=== PATIENT | female | born 1970 | race Caucasian/White ===

== ENCOUNTER 2022-07-26 07:14 | Day surgery (SDC) | payer OTHER ==
[2022-07-24 10:04] VITALS: BMI 27.9
[~2022-07-26 07:14] MED LIST: LACTATED RINGERS 1,000 ML IV SCH; LIDOCAINE 1% (10MG/ML) FOR IV START INTRADERMA PRN
[2022-07-26 07:31] VITALS: TEMP 97.5
[2022-07-26] MEDS ORDERED: LIDOCAINE 2% INJ 20 MG/ML (2 ML VIAL) ONE (08:08)
[2022-07-26] MEDS ORDERED: PROPOFOL 10 MG/ML 20 ML VIAL IV ONE (08:08)
--- NOTE | 2022-07-26 08:13 | P.HPIHPCON ---
History of Present Illness H&P Date: 07/26/22 51-year-old female presents today for upper endoscopy. She has had reflux and last for approximately 8 years and has been on and off reflux medication. She describes her symptoms as burning in the chest and into her throat. Consent for Procedure: I have explained the operation/procedure to the patient, including the risks, benefits, side effects, alternative therapies (including not receiving the proposed treatment or service), the likelihood of the patient achieving his/her goals, and potential recuperation problems for the procedure/sedation/analgesia, as well as any blood products, if indicated. I also explained to the patient the risks, benefits and side effects of the alternatives, as well as the risks related to not receiving the proposed procedure, care, treatment, or services. - Review of Systems All systems: negative Past Medical History Past Medical History: GERD/Reflux History of Any Multi-Drug Resistant Organisms: None Reported Past Surgical History: Bladder Surgery, Hysterectomy, Orthopedic Surgery, Uterine Ablation Additional Past Surgical History / Comment(s): BUNIONECTOMY LT FOOT. BLADDER SLING Past Anesthesia/Blood Transfusion Reactions: Postoperative Nausea & Vomiting (PONV) Smoking Status: Never smoker - Past Family History Mother Family Medical History: No Reported History Medications and Allergies Home Medications Medication Instructions Recorded Confirmed Type Dextroamphetamine/Amphetamine 20 mg PO DAILY 07/24/22 07/24/22 History [Adderall 20 mg Tablet] Estrogens, Conjugated [Premarin] 0.3 mg PO HS 07/24/22 07/24/22 History Pantoprazole [Protonix] 40 mg PO HS 07/24/22 07/24/22 History Allergies Allergy/AdvReac Type Severity Reaction Status Date / Time No Known Allergies Allergy Verified 07/26/22 07:27 Surgical - Exam Osteopathic Statement: *. No significant issues noted on an osteopathic structural exam other than those noted in the History and Physical/Consult. Vital Signs Temp Pulse Resp BP Pulse Ox 97.5 F L 62 16 141/64 100 07/26/22 07:30 07/26/22 07:30 07/26/22 07:30 07/26/22 07:30 07/26/22 07:30 - General well nourished, no distress - Eyes normal ocular movement - Neck trachea midline - Respiratory normal respiratory effort - Abdomen Abdomen: soft, non tender Assessment and Plan Plan: Plan is for upper endoscopy for further evaluation. Risks, benefits and alternatives were provided. Further recommendations after procedure was completed.
--- NOTE | 2022-07-26 08:28 | P.PCN ---
Date of Procedure: 07/26/22 Preoperative Diagnosis: GERD Postoperative Diagnosis: Gastritis Duodenitis Gastric polyp Hiatal hernia Procedure(s) Performed: EGD with biopsy Anesthesia: MAC Surgeon: Levi Allen Pathology: other (Biopsies of antrum, duodenum, gastric polyp, esophagus) Disposition: same day Indications for Procedure: 51-year-old female with GERD over the last 8 years. She has been on and off reflux medication. Plan is for upper endoscopy. Further recommendations to be provided after procedure is completed. Operative Findings: Gastritis Gastric polyp Hiatal hernia Description of Procedure: The patient was brought to the endoscopy suite. The patient was placed in left lateral decubitus position and adequate sedation was achieved using conscious sedation. A bite-block was placed and an endoscope was placed in the oropharynx and advanced under endoscopic visualization. The endoscope was advanced through the esophagus into the stomach, through the gastric antrum and in through the pylorus. The third portion of the duodenum was visualized. The endoscope was then slowly withdrawn. The first portion of duodenum was noted to have inflammatory changes. 5 mL were taken. The antrum was noted to have inflammatory changes. Biopsies were taken. The gastric body distended normally and the gastric folds appeared normal and flattened with insufflation. Small amount of polyps were noted. Polyp biopsy was performed. Hemostasis was maintained. A retroflexed view of the fundus and GE junction revealed a mild hiatal hernia. The esophagus appeared endoscopically normal. Biopsies were taken. Excess air was removed and the scope was withdrawn and the procedure was completed. The patient was then sent to PACU in stable condition.
[2022-07-26 08:50] VITALS: BP 121/75; PULSE 61; RESP 16
== END 2022-07-26 09:14 | disposition home or self-care (01) ==
LOC: ORWHC2ENDO 07:14
PROVIDERS: ATTEND Surgery
DX: K21.00 Gastro-esophageal reflux disease with esophagitis, without bleeding (principal); K29.50 Unspecified chronic gastritis without bleeding; K29.80 Duodenitis without bleeding; K31.7 Polyp of stomach and duodenum; K44.9 Diaphragmatic hernia without obstruction or gangrene; K21.9 Gastro-esophageal reflux disease without esophagitis; Z90.410 Acquired total absence of pancreas; Z98.890 Other specified postprocedural states; Z79.899 Other long term (current) drug therapy
CPT/HCPCS: 88305; 43239; J2704; J2001

== ENCOUNTER 2023-08-25 07:41 | Inpatient (IN) | payer BC, OTHER ==
[2023-08-25] MEDS ORDERED: SODIUM CHLORIDE 0.9% 1,000 ML IV STA (07:53)
[2023-08-25] MEDS ORDERED: ONDANSETRON 4 MG/2 ML VIAL IVP STA (07:53)
[2023-08-25] MEDS ORDERED: FAMOTIDINE 20 MG/2 ML VIAL IV STA (07:53)
[2023-08-25] MEDS ORDERED: DICYCLOMINE 10 MG/ML 2 ML AMP IM STA (07:53)
[2023-08-25 08:11] LABS: Basophils % (A) 0 %; Eosinophils # (A) 0.1 k/uL (0-0.7); Eosinophils % (A) 1 %; HCT 42.4 % (34.0-46.0); HGB 14.4 gm/dL (11.4-16.0); Lymphocytes # (A) 0.5 k/uL (1.0-4.8); Lymphocytes % (A) 3 %; MCH 32.1 pg (25.0-35.0); MCHC 33.9 g/dL (31.0-37.0); MCV 94.8 fL (80.0-100.0); Monocytes # (A) 0.5 k/uL (0-1.0); Monocytes % (A) 3 %; Neutrophils # (A) 15.3 k/uL (1.3-7.7); Neutrophils % (A) 93 %; Platelet Count 339 k/uL (150-450); RBC 4.48 m/uL (3.80-5.40); RDW 12.2 % (11.5-15.5); WBC 16.5 k/uL (3.8-10.6)
[2023-08-25 08:21] LABS: ALT 23 U/L (4-34); AST 33 U/L (14-36); African American GFR (CKD) >90 (>60 ml/min/1.73 sqM); Albumin 4.1 g/dL (3.5-5.0); Alkaline Phosphatase 72 U/L (38-126); Amylase 92 U/L (30-110); Anion Gap 10 mmol/L; Blood Urea Nitrogen 20 mg/dL (7-17); Calcium 9.5 mg/dL (8.4-10.2); Carbon Dioxide 27 mmol/L (22-30); Chloride 105 mmol/L (98-107); Glucose 125 mg/dL (74-99); Lipase 47 U/L (23-300); Non-African American GFR(CKD) >90 (>60 ml/min/1.73 sqM); Potassium 4.4 mmol/L (3.5-5.1); Sodium 142 mmol/L (137-145); Total Bilirubin 0.8 mg/dL (0.2-1.3); Total Protein 7.2 g/dL (6.3-8.2)
--- NOTE | 2023-08-25 09:19 | ED ---
General Adult HPI - General Chief complaint: Nausea/Vomiting/Diarrhea Stated complaint: N/V Time Seen by Provider: 08/25/23 07:46 Source: patient, EMS, RN notes reviewed Mode of arrival: EMS Limitations: no limitations - History of Present Illness Initial comments: Patient is a pleasant 52-year-old female presenting to the emergency department with concerns for nausea vomiting diarrhea. Onset of symptoms was around 2 AM. Patient has had 5 or 6 episodes each of vomiting and diarrhea. Patient has some nausea that improved with Zofran by EMS. Patient has occasional abdominal cramping that is intermittent. Patient has had several episodes of diarrhea. No fever. No history of chronic similar symptoms previously. - Related Data Home Medications Medication Instructions Recorded Confirmed Dextroamphetamine/Amphetamine 20 mg PO DAILY 07/24/22 07/24/22 [Adderall] Estrogens, Conjugated [Premarin] 0.3 mg PO HS 07/24/22 07/24/22 Pantoprazole [Protonix] 40 mg PO HS 07/24/22 07/24/22 Previous Rx's Medication Instructions Recorded Dicyclomine [Bentyl] 20 mg PO QID PRN #15 tablet 08/25/23 Ondansetron Odt [Zofran Odt] 4 mg PO Q8HR PRN #10 tab 08/25/23 Allergies Allergy/AdvReac Type Severity Reaction Status Date / Time No Known Allergies Allergy Verified 08/25/23 07:56 Review of Systems ROS Statement: Those systems with pertinent positive or pertinent negative responses have been documented in the HPI. ROS Other: All systems not noted in ROS Statement are negative. Constitutional: Denies: fever Eyes: Denies: eye pain ENT: Denies: ear pain Respiratory: Denies: cough, dyspnea Cardiovascular: Denies: chest pain Endocrine: Denies: fatigue Gastrointestinal: Reports: as per HPI, nausea, vomiting, diarrhea Genitourinary: Denies: dysuria Skin: Denies: rash Neurological: Denies: weakness Past Medical History Past Medical History: GERD/Reflux History of Any Multi-Drug Resistant Organisms: None Reported Past Surgical History: Bladder Surgery, Hysterectomy, Orthopedic Surgery, Uterine Ablation Additional Past Surgical History / Comment(s): BUNIONECTOMY LT FOOT. BLADDER SLING Past Anesthesia/Blood Transfusion Reactions: Postoperative Nausea & Vomiting (PONV) Past Psychological History: No Psychological Hx Reported Smoking Status: Never smoker Past Alcohol Use History: Occasional Past Drug Use History: None Reported - Past Family History Mother Family Medical History: No Reported History General Exam Limitations: no limitations General appearance: alert, in no apparent distress Head exam: Present: normocephalic Eye exam: Present: normal appearance Neck exam: Present: normal inspection Respiratory exam: Present: normal lung sounds bilaterally Cardiovascular Exam: Present: regular rate, normal rhythm GI/Abdominal exam: Present: soft. Absent: distended, tenderness, pulsatile mass Extremities exam: Present: normal inspection Neurological exam: Present: alert Psychiatric exam: Present: normal affect, normal mood Skin exam: Present: normal color Course Vital Signs 08/25/23 07:45 Temperature 98.1 F Pulse Rate 74 Respiratory 18 Rate Blood Pressure 121/77 O2 Sat by Pulse 99 Oximetry Medical Decision Making - Medical Decision Making Was pt. sent in by a medical professional or institution (, PA, HOE RUNNER, urgent care, hospital, or group home...) When possible be specific @ -No Did you speak to anyone other than the patient for history (EMS, parent, family, police, friend...)? What history was obtained from this source @ -No Did you review nursing and triage notes (agree or disagree)? Why? @ -I reviewed and agree with nursing and triage notes Were old charts reviewed (outside hosp., previous admission, EMS record, old EKG, old radiological studies, urgent care reports/EKG's, group home records)? Report findings @ -No old charts were reviewed Differential Diagnosis (chest pain, altered mental status, abdominal pain women, abdominal pain men, vaginal bleeding, weakness, fever, dyspnea, syncope, headache, dizziness, GI bleed, back pain, seizure, CVA, palpatations, mental health, musculoskeletal)? @ -Differential Abdominal Pain Women: Appendicitis, Cholecystitis, diverticulosis, ischemic bowel, pancreatitis, hepatitis, UTI, gastroenteritis, AAA, incarcerated hernia, bowel obstruction, constipation, inflammatory bowel, hepatitis, peptic ulcer disease, splenic infarction, perforated viscus, vulvitis, ovarian torsion, PID, kidney stone, placenta abruption, this is not meant to be an all-inclusive list EKG interpreted by me (3pts min.). @ -As above X-rays interpreted by me (1pt min.). @ -None done CT interpreted by me (1pt min.). @ -None done U/S interpreted by me (1pt. min.). @ -None done What testing was considered but not performed or refused? (CT, X-rays, U/S, labs)? Why? @ -Considered imaging however patient has no abdominal tenderness What meds were considered but not given or refused? Why? @ -None Did you discuss the management of the patient with other professionals (susan yarbrough i.e. , PA, HOE RUNNER, lab, RT, psych nurse, nursing home social worker, sales representative wire rope, teacher, sailing officer, field nurse case manager)? Give summary @ -No Was smoking cessation discussed for >3mins.? @ -No Was critical care preformed (if so, how long)? @ -No Were there social determinants of health that impacted care today? How? (Homelessness, low income, unemployed, alcoholism, drug addiction, transportatio n, low edu. Level, literacy, decrease access to med. care, shelter, rehab)? @ -No Was there de-escalation of care discussed even if they declined (Discuss DNR or withdrawal of care, Hospice)? DNR status @ -No What co-morbidities impacted this encounter? (DM, HTN, Smoking, COPD, CAD, Cancer, CVA, ARF, Chemo, Hep., AIDS, mental health diagnosis, sleep apnea, morbid obesity)? @ -None Was patient admitted / discharged? Hospital course, mention meds given and route, prescriptions, significant lab abnormalities, going to OR and other pertinent info. @ -Patient reevaluated and feeling much better. Patient tolerating ice chips and syd idania. Patient and family are updated on results and plan. Patient will be provided prescriptions and recommended follow-up. Undiagnosed new problem with uncertain prognosis? @ -No Drug Therapy requiring intensive monitoring for toxicity (Heparin, Nitro, Insulin, Cardizem)? @ -No Were any procedures done? @ -No Diagnosis/symptom? @ -Vomiting, diarrhea Acute, or Chronic, or Acute on Chronic? @ -Acute Uncomplicated (without systemic symptoms) or Complicated (systemic symptoms)? @ -default Side effects of treatment? @ -No Exacerbation, Progression, or Severe Exacerbation? @ -No Poses a threat to life or bodily function? How? (Chest pain, USA, GA, pneumonia, PE, COPD, DKA, ARF, appy, cholecystitis, CVA, Diverticulitis, Homicidal, Suicidal, threat to staff... and all critical care pts) @ -No - Lab Data Result diagrams: 08/25/23 08:03 08/25/23 08:03 Lab Results 08/25/23 08/25/23 Range/Units 08:03 08:03 WBC 16.5 H (3.8-10.6) k/uL RBC 4.48 (3.80-5.40) m/uL Hgb 14.4 (11.4-16.0) gm/dL Hct 42.4 (34.0-46.0) % MCV 94.8 (80.0-100.0) fL MCH 32.1 (25.0-35.0) pg MCHC 33.9 (31.0-37.0) g/dL RDW 12.2 (11.5-15.5) % Plt Count 339 (150-450) k/uL MPV 7.0 Neutrophils % 93 % Lymphocytes % 3 % Monocytes % 3 % Eosinophils % 1 % Basophils % 0 % Neutrophils # 15.3 H (1.3-7.7) k/uL Lymphocytes # 0.5 L (1.0-4.8) k/uL Monocytes # 0.5 (0-1.0) k/uL Eosinophils # 0.1 (0-0.7) k/uL Basophils # 0.0 (0-0.2) k/uL Sodium 142 (137-145) mmol/L Potassium 4.4 (3.5-5.1) mmol/L Chloride 105 (98-107) mmol/L Carbon Dioxide 27 (22-30) mmol/L Anion Gap 10 mmol/L BUN 20 H (7-17) mg/dL Creatinine 0.64 (0.52-1.04) mg/dL Est GFR (CKD-EPI)AfAm >90 (>60 ml/min/1.73 sqM) Est GFR (CKD-EPI)NonAf >90 (>60 ml/min/1.73 sqM) Glucose 125 H (74-99) mg/dL Calcium 9.5 (8.4-10.2) mg/dL Total Bilirubin 0.8 (0.2-1.3) mg/dL AST 33 (14-36) U/L ALT 23 (4-34) U/L Alkaline Phosphatase 72 (38-126) U/L Total Protein 7.2 (6.3-8.2) g/dL Albumin 4.1 (3.5-5.0) g/dL Amylase 92 (30-110) U/L Lipase 47 (23-300) U/L Disposition Clinical Impression: Vomiting, Diarrhea Disposition: HOME SELF-CARE Condition: Stable Instructions (If sedation given, give patient instructions): Acute Nausea and Vomiting (ED), Acute Diarrhea (ED) Additional Instructions: Prescriptions and sent to pharmacy. Please do follow-up to primary care physician in the next one or 2 days for recheck. Return for uncontrolled vomiting, diarrhea, pain on a fevers, worsening or changing symptoms or any other concerns. Prescriptions: Dicyclomine [Bentyl] 20 mg PO QID PRN #15 tablet PRN Reason: Pain Ondansetron Odt [Zofran Odt] 4 mg PO Q8HR PRN #10 tab PRN Reason: Nausea Is patient prescribed a controlled substance at d/c from ED?: No Referrals: Bartolome Alejo DO [Primary Care Provider] - 1-2 days Time of Disposition: 09:18
[2023-08-25] MEDS ORDERED: ONDANSETRON 4 MG/2 ML VIAL IVP PRN (11:09)
[2023-08-25] MEDS ORDERED: NALOXONE 0.4 MG/ML 1 ML VIAL IV PRN (11:09)
--- NOTE | 2023-08-25 11:09 | ED ---
Medical Decision Making - Medical Decision Making Patient did have a bloody bowel movement following attempted discharge. Patient did have a second one just prior to reevaluation. Patient is resting comfortably in bed. Rectal exam without any swelling or obvious hemorrhoids. Patient did have reported protrusion earlier. No protrusion or evidence of prolapse at this time. Exam with minimal blood. Secondary to patient having recurrent bleeding she will be admitted. Admitting physician paged. Admission orders written. GI will be placed on consult. Case was discussed with Dr. Mccoy, who will admit for Dr. Alejo. - Lab Data Result diagrams: 08/25/23 08:03 08/25/23 08:03 Lab Results 08/25/23 08/25/23 Range/Units 08:03 08:03 WBC 16.5 H (3.8-10.6) k/uL RBC 4.48 (3.80-5.40) m/uL Hgb 14.4 (11.4-16.0) gm/dL Hct 42.4 (34.0-46.0) % MCV 94.8 (80.0-100.0) fL MCH 32.1 (25.0-35.0) pg MCHC 33.9 (31.0-37.0) g/dL RDW 12.2 (11.5-15.5) % Plt Count 339 (150-450) k/uL MPV 7.0 Neutrophils % 93 % Lymphocytes % 3 % Monocytes % 3 % Eosinophils % 1 % Basophils % 0 % Neutrophils # 15.3 H (1.3-7.7) k/uL Lymphocytes # 0.5 L (1.0-4.8) k/uL Monocytes # 0.5 (0-1.0) k/uL Eosinophils # 0.1 (0-0.7) k/uL Basophils # 0.0 (0-0.2) k/uL Sodium 142 (137-145) mmol/L Potassium 4.4 (3.5-5.1) mmol/L Chloride 105 (98-107) mmol/L Carbon Dioxide 27 (22-30) mmol/L Anion Gap 10 mmol/L BUN 20 H (7-17) mg/dL Creatinine 0.64 (0.52-1.04) mg/dL Est GFR (CKD-EPI)AfAm >90 (>60 ml/min/1.73 sqM) Est GFR (CKD-EPI)NonAf >90 (>60 ml/min/1.73 sqM) Glucose 125 H (74-99) mg/dL Calcium 9.5 (8.4-10.2) mg/dL Total Bilirubin 0.8 (0.2-1.3) mg/dL AST 33 (14-36) U/L ALT 23 (4-34) U/L Alkaline Phosphatase 72 (38-126) U/L Total Protein 7.2 (6.3-8.2) g/dL Albumin 4.1 (3.5-5.0) g/dL Amylase 92 (30-110) U/L Lipase 47 (23-300) U/L Disposition Clinical Impression: Vomiting, Diarrhea Disposition: ADMITTED IP TO THIS HOSP Condition: Stable Is patient prescribed a controlled substance at d/c from ED?: No Time of Disposition: 11:09
[2023-08-25] MEDS: SODIUM CHLORIDE 0.9% 1,000 ML IV SCH (11:12)
[2023-08-25] MEDS ORDERED: BARIUM SULFATE 2% - 450 ML ORAL.SUSP BOTTLE PO PRN (14:29)
[2023-08-25] MEDS: HYDROmorphone 0.5 MG/0.5 ML SYRINGE IVP PRN (14:42)
[2023-08-25] MEDS ORDERED: IOPAMIDOL CONTRAST (ORAL USE) VIAL PO PRN (15:04)
[2023-08-25 15:43] LABS: Basophils % (A) 0 %; Eosinophils % (A) 0 %; HGB 13.7 gm/dL (11.4-16.0); Lymphocytes # (A) 0.4 k/uL (1.0-4.8); Lymphocytes % (A) 4 %; MCHC 33.4 g/dL (31.0-37.0); MCV 95.5 fL (80.0-100.0); Mean Platelet Volume 7.3; Monocytes # (A) 0.3 k/uL (0-1.0); Monocytes % (A) 2 %; Neutrophils # (A) 11.6 k/uL (1.3-7.7); Neutrophils % (A) 94 %; Platelet Count 305 k/uL (150-450); RBC 4.29 m/uL (3.80-5.40); WBC 12.3 k/uL (3.8-10.6)
--- NOTE | 2023-08-25 16:54 | P.CONS ---
History of Present Illness - Reason for Consult Consult date: 08/25/23 Lower GI bleed Requesting physician: Al Gilliam - Chief Complaint Abdominal pain, nausea and vomiting - History of Present Illness This a 52-year-old female who presented to the emergency department this morning after having several episodes of emesis. Patient had nausea and vomiting throughout the day and diarrhea. She denied any coffee-ground emesis or hematemesis. States diarrhea was normal until she was getting ready to be discharged from the emergency department and she started having bright red blood per rectum. She also is complaining of lower abdominal pain and cramping associated with her diarrhea. States that she was getting diaphoretic and feeling weak. She states that she does have problems with constipation in the past, she noticed that she was having a protrusion from her rectum throughout the day yesterday and today. She states that every time she stands up her rectum is protruding and when she gets up to have a bowel movement it is all blood. She is able to push back the rectum, however every time she stands up it protrudes and is painful. She denies any previous GI bleed. States that she had a colonoscopy she believes in 2014 for some GI issues at that time however states that her colonoscopy was normal. She denies being on any anticoagulation. WBC 16.5 hemoglobin 14.4 hematocrit 42 platelet count 339,000 sodium 142 potas sium 4.4 albumin 20 creatinine 0.6 total bilirubin 0.8 AST 33 ALT 23 alkaline phosphatase 72 amylase 92 lipase 47 Review of Systems REVIEW OF SYSTEMS: CARDIOPULMONARY: No chest pain or shortness of breath. Gastrointestinal: Lower abdominal cramping and pain. Nausea and vomiting. No hematemesis, coffee-ground emesis. Rectal bleeding with prolapsed rectum. GENITOURINARY: No dysuria or hematuria. MUSCULOSKELETAL: Reports normal range of motion. SKIN: No rashes. No jaundice. ENDOCRINE: No excessive weight gain or loss. No polydipsia or polyuria. PSYCHIATRIC: Unremarkable. NEUROLOGY: No change in mental status. Denies dizziness, headache. ENT: Vision unremarkable. CONSTITUTIONAL: No recent weight loss. Patient with chills, diaphoretic through the night with the nausea and vomiting. Weakness. Past Medical History Past Medical History: GERD/Reflux History of Any Multi-Drug Resistant Organisms: None Reported Past Surgical History: Bladder Surgery, Hysterectomy, Orthopedic Surgery, Uterine Ablation Additional Past Surgical History / Comment(s): BUNIONECTOMY LT FOOT. BLADDER SLING Past Anesthesia/Blood Transfusion Reactions: Postoperative Nausea & Vomiting (PONV) Past Psychological History: No Psychological Hx Reported Smoking Status: Never smoker Past Alcohol Use History: Occasional Past Drug Use History: None Reported - Past Family History Mother Family Medical History: No Reported History Medications and Allergies Home Medications Medication Instructions Recorded Confirmed Type Dextroamphetamine/Amphetamine 20 mg PO DAILY 07/24/22 08/25/23 History [Adderall] Estrogens, Conjugated [Premarin] 0.3 mg PO HS 07/24/22 08/25/23 History Pantoprazole [Protonix] 40 mg PO HS 07/24/22 08/25/23 History Ascorbic Acid [Vitamin C] 1,000 mg PO DAILY PRN 08/25/23 08/25/23 History Aspirin/Acetaminophen/Caffeine 2 tab PO Q6H PRN 08/25/23 08/25/23 History [Excedrin Migraine Caplet] Dicyclomine [Bentyl] 20 mg PO QID PRN #15 tablet 08/25/23 Rx LORazepam [Ativan] 1 mg PO DAILY PRN 08/25/23 08/25/23 History Ondansetron Odt [Zofran Odt] 4 mg PO Q8HR PRN #10 tab 08/25/23 Rx Allergies Allergy/AdvReac Type Severity Reaction Status Date / Time No Known Allergies Allergy Verified 08/25/23 11:41 Physical Exam Vitals: Vital Signs Temp Pulse Pulse Resp BP BP Pulse Ox 08/25/23 14:04 98.5 F 56 L 16 111/70 99 08/25/23 11:34 98.2 F 74 16 112/71 98 08/25/23 09:52 98.2 F 83 18 114/76 99 08/25/23 07:45 98.1 F 74 18 121/77 99 Intake and Output 08/25/23 08/25/23 08/25/23 06:59 14:59 22:59 Other: Weight 66.224 kg General appearance: The patient is alert, oriented, appears in no acute distress. HET: Head is normocephalic and atraumatic. Conjunctiva pink. Sclera anicteric. Neck: Supple without lymphadenopathy. Trachea midline. Heart: Regular. Lungs: Equal expansion, normal respiratory effort. Abdomen: Soft, lower abdominal tenderness with palpation, nondistended. No guarding or rigidity. Rectum: No notable hemorrhoids, rectum prolapsed at this time. Skin: No rashes. No jaundice. Extremities: Normal skin color and turgor. No pedal edema. Neurological: No focal deficits. Alert and oriented x3. Results CBC & Chem 7: 08/25/23 15:04 08/25/23 08:03 Labs: Abnormal Lab Results - Last 24 Hours (Table) 08/25/23 08/25/23 08/25/23 Range/Units 08:03 08:03 11:13 WBC 16.5 H (3.8-10.6) k/uL Neutrophils # 15.3 H (1.3-7.7) k/uL Lymphocytes # 0.5 L (1.0-4.8) k/uL BUN 20 H (7-17) mg/dL Glucose 125 H (74-99) mg/dL Stool Occult Blood Positive H (Negative) Assessment and Plan (1) Lower GI bleed Narrative/Plan: 52-year-old female with nausea vomiting and diarrhea came into the emergency department with concerns of weakness and fatigue. Patient then started having bright red blood per rectum in the emergency department right prior to plans for discharge. Patient was recently diagnosed with covert infection about 2 weeks ago. She does suffer from some constipation at times. Denies previous history of lower GI bleed. Denies any anticoagulation. Does have associated abdominal pain and cramping. Need to consider possible infectious colitis as patient has elevated WBC. Will order a CT abdomen and pelvis. Continue clear liquid diet. Further recommendations forthcoming based on clinical course. Current Visit: Yes Status: Acute Code(s): K92.2 - GASTROINTESTINAL HEMORRHAGE, UNSPECIFIED SNOMED Code(s): 23935286 (2) Abdominal pain Current Visit: Yes Status: Acute Code(s): R10.9 - UNSPECIFIED ABDOMINAL PAIN SNOMED Code(s): 67942838 (3) Nausea and vomiting Current Visit: Yes Status: Acute Code(s): R11.2 - NAUSEA WITH VOMITING, UNSPECIFIED SNOMED Code(s): 11109342 (4) Rectal prolapse Narrative/Plan: Recurrent rectal prolapse, general surgery consulted. Patient requesting Dr. Damon if possible. Current Visit: Yes Status: Acute Code(s): K62.3 - RECTAL PROLAPSE SNOMED Code(s): 85460463 (5) Diarrhea Current Visit: Yes Status: Acute Code(s): R19.7 - DIARRHEA, UNSPECIFIED SNOMED Code(s): 17745771 Plan: 1. Continue symptomatic and supportive care 2. CT abdomen and pelvis with contrast ordered 3. Check CBC every 6 hours 4. Patient may have clear liquid diet 5. Consult to Gen. surgery for recurrent rectal prolapse with rectal bleeding Thank you for this consultation, we will continue to follow. Dr. Valentina Dunn I agree with the dictator's note, documented as a scribe by Argenis Herr.
[2023-08-25] MEDS: METOCLOPRAMIDE 5 MG/ML 2 ML VIAL IVP PRN (17:18)
--- NOTE | 2023-08-25 17:34 | CT ---
EXAMINATION TYPE: CT abdomen pelvis w con CT DLP: 534.9 mGycm, Automated exposure control for dose reduction was used. DATE OF EXAM: 08/25/2023 5:15 PM COMPARISON: None CLINICAL INDICATION:Female, 52 years old with history of abdominal pain, rectal bleeding; Abdominal p ain, rectal bleeding, nausea and vomiting since this morning. TECHNIQUE: Axial CT of the ;CT abdomen pelvis w con;Sagittal and coronal reformats were created on a separate workstation. Contrast used:100 cc mL of Isovue 300 with IV Contrast, (none if empty) Oral contrast used: with Oral Contrast (none if empty) FINDINGS: LOWER CHEST: Unremarkable ABDOMEN LIVER: Unremarkable GALLBLADDER AND BILE DUCTS: Unremarkable. PANCREAS: Unremarkable. SPLEEN: Unremarkable. ADRENAL GLANDS: Unremarkable. KIDNEYS AND URETERS: No evidence of hydronephrosis or renal calculus. The ureters are unremarkable. PELVIS BLADDER: Unremarkable REPRODUCTIVE: Unremarkable. ABDOMEN & PELVIS STOMACH AND BOWEL: No evidence of bowel obstruction. The appendix is normal. Circumferential wall thi ckening of the descending colon extending from the splenic flexure to the sigmoid colon.. Wall thicke harpreet up to 11 mm with hyperemia. No organizing fluid collection. PERITONEUM/RETROPERITONEUM: No evidence of pneumoperitoneum or free fluid. VASCULATURE: No evidence of aortic aneurysm. MUSCULOSKELETAL: No acute osseous abnormalities LYMPH NODES: No gross evidence for lymphadenopathy. SOFT TISSUE/ABDOMINAL WALL: Fat-containing umbilical hernia. IMPRESSION: Colitis of the descending colon, no evidence for obstruction or perforation or organizing fluid colle ction.
[2023-08-25] MEDS: HYDROcodone/APAP 5-325MG 1 EACH TAB PO PRN (18:19)
[2023-08-25] MEDS: PANTOPRAZOLE 40 MG/10 ML VIAL IV SCH (20:20)
[2023-08-25 20:29] LABS: Basophils % (A) 0 %; Eosinophils % (A) 0 %; HCT 37.7 % (34.0-46.0); HGB 12.5 gm/dL (11.4-16.0); Lymphocytes # (A) 0.5 k/uL (1.0-4.8); Lymphocytes % (A) 5 %; MCH 31.5 pg (25.0-35.0); MCHC 33.3 g/dL (31.0-37.0); MCV 94.8 fL (80.0-100.0); Mean Platelet Volume 7.5; Monocytes # (A) 0.4 k/uL (0-1.0); Monocytes % (A) 4 %; Neutrophils # (A) 10.2 k/uL (1.3-7.7); Neutrophils % (A) 91 %; Platelet Count 314 k/uL (150-450); RBC 3.97 m/uL (3.80-5.40); WBC 11.2 k/uL (3.8-10.6)
--- NOTE | 2023-08-25 23:05 | HP ---
HISTORY AND PHYSICAL CHIEF COMPLAINTS: Nausea, vomiting, diarrhea, and GI bleed. HISTORY OF PRESENT ILLNESS: This is a 52-year-old woman with past medical history of GERD, was complaining of acute diarrhea since 2 a.m. The patient had 5 to 6 times diarrhea as well as some vomiting. The patient apparently ate some frosting during the holidays. The patient subsequently noted some blood in the stool also and prolapsed rectum and the patient was admitted for further evaluation and treatment. The patient had constipation previously and might have some prolapse previously according to her. There is no history of any fever, rigors, or chills. PAST MEDICAL HISTORY: Reviewed, GERD, bladder surgeries, rest of the history and rest of the chart is also reviewed. HOME MEDICATIONS: Reviewed include Ativan, dose and rest of medications noted. ALLERGIES: None. FAMILY HISTORY: No history of heart disease or strokes in the family. SOCIAL HISTORY: No history of smoking or alcohol. REVIEW OF SYSTEMS: A 14-point review is negative except as mentioned. PHYSICAL EXAMINATION: VITAL SIGNS: Pulse 56, blood pressure 111/76, respirations 16. HEENT: Conjunctivae normal. NECK: No jugular venous distention. CARDIOVASCULAR: S1, S2 muffled. RESPIRATIONS: Breath sounds diminished at the bases. ABDOMEN: Soft. Mild diffuse discomfort. No guarding, no rigidity, no masses palpable. LEGS: No edema, no swelling. NERVOUS SYSTEM: No focal deficit. SKIN: No ulcer, rash, bleeding. JOINTS: No active deforming arthropathy. LABORATORY DATA: Reviewed. ASSESSMENT: 1. Acute diarrheal disease. 2. Dehydration. 3. Possible rectal prolapse. 4. Lower GI bleed, possibly secondary to rectal prolapse. 5. Increased WBC. 6. Gastroesophageal reflux disease. 7. History of DJD. RECOMMENDATIONS: This 52-year-old woman presented with multiple complex medical issues, we will monitor the patient closely. Continue the current management, continue symptomatic treatment, otherwise at this time I will keep the patient n.p.o. except medications and IV fluids, surgical consultation. Other than that, continue to monitor. Further recommendations to follow. If the diarrhea is persisting, I would recommend stool cultures and further evaluation also. See orders for further details. MMODL / IJN: [id number] /
[2023-08-26] MEDS: HYDROcodone/APAP 5-325MG 1 EACH TAB PO PRN ×3 (01:00→15:52)
[2023-08-26] MEDS: ONDANSETRON 4 MG/2 ML VIAL IVP PRN ×4 (01:00→22:52)
[2023-08-26] MEDS: SODIUM CHLORIDE 0.9% 1,000 ML IV SCH ×2 (01:08→15:53)
[2023-08-26 08:44] LABS: Blood Urea Nitrogen 9.9 mg/dL (9.0-27.0); Calcium 8.5 mg/dL (8.7-10.3); Carbon Dioxide 25.5 mmol/L (21.6-31.8); Chloride 106 mmol/L (96-109); Glucose 91 mg/dL (70-110); Potassium 3.8 mmol/L (3.5-5.5); Sodium 138 mmol/L (135-145)
[2023-08-26 08:46] LABS: Basophils # (A) 0.02 X 10*3/uL (0.00-0.10); Basophils % (A) 0.3 %; Eosinophils # (A) 0.06 X 10*3/uL (0.04-0.35); Eosinophils % (A) 0.8 %; HCT 34.1 % (37.2-46.3); HGB 11.3 g/dL (12.0-15.0); Lymphocytes # (A) 1.62 X 10*3/uL (0.90-5.00); Lymphocytes % (A) 21.1 %; MCH 31.4 pg (27.0-32.0); MCHC 33.1 g/dL (32.0-37.0); MCV 94.7 FL (80.0-97.0); Mean Platelet Volume 9.7 FL (9.5-12.2); Monocytes # (A) 0.49 X 10*3/uL (0.20-1.00); Monocytes % (A) 6.4 %; NRBC Per 100 WBC 0 X 10*3/uL (0.00-0.01); Neutrophils # (A) 5.47 X 10*3/uL (1.80-7.70); Neutrophils % (A) 71.1 %; Platelet Count 272 X 10*3/uL (140-440); RDW 12.2 % (11.5-14.5); WBC 7.68 X 10*3/uL (4.50-10.00)
[2023-08-26] MEDS ORDERED: PANTOPRAZOLE 40 MG/10 ML VIAL IV SCH (09:00)
[2023-08-26] MEDS: PIPERACILLIN-TAZOBACTAM 3.375 GM in SODIUM CHLORIDE 0.9% 100 ML IVPB SCH ×2 (09:57→15:50)
[2023-08-26] MEDS: PANTOPRAZOLE 40 MG/10 ML VIAL IV SCH ×2 (09:57→20:37)
--- NOTE | 2023-08-26 12:51 | P.PN ---
Subjective Progress Note Date: 08/26/23 Principal diagnosis: GI bleed This a 52-year-old female who presented to the emergency department this morning after having several episodes of emesis. Patient had nausea and vomiting throughout the day and diarrhea. She denied any coffee-ground emesis or hematemesis. States diarrhea was normal until she was getting ready to be discharged from the emergency department and she started having bright red blood per rectum. She also is complaining of lower abdominal pain and cramping associated with her diarrhea. States that she was getting diaphoretic and feeling weak. She states that she does have problems with constipation in the past, she noticed that she was having a protrusion from her rectum throughout the day yesterday and today. She states that every time she stands up her rectum is protruding and when she gets up to have a bowel movement it is all blood. She is able to push back the rectum, however every time she stands up it protrudes and is painful. She denies any previous GI bleed. States that she had a colonoscopy she believes in 2014 for some GI issues at that time however states that her colonoscopy was normal. She denies being on any anti coagulation. WBC 16.5 hemoglobin 14.4 hematocrit 42 platelet count 339,000 sodium 142 potassium 4.4 albumin 20 creatinine 0.6 total bilirubin 0.8 AST 33 ALT 23 alkaline phosphatase 72 amylase 92 lipase 47 08/26/2023 Patient seen and examined today as a follow-up. She had her CT of the abdomen and pelvis with contrast reporting colitis within the descending colon. Patient states she hasn't had any further bowel movement or bleeding since 1 AM. Last episode of vomiting was yesterday around 5 PM still has some occasional nausea. States also still having some lower abdominal cramping, which has improved though since yesterday. States she has not had the rectal prolapse since last night. She's been afebrile. Today's labs WBC 7.6 hemoglobin 11.3 hematocrit 34 sodium 138 potassium 3.8 the 19.9 creatinine 0.6 C. diff negative. Objective - Vital Signs Vital signs: Vital Signs Temp 98.1 F 08/26/23 07:34 Pulse 69 08/26/23 07:34 Resp 15 08/26/23 07:34 BP 99/62 08/26/23 07:34 Pulse Ox 99 08/26/23 07:34 FiO2 Intake & Output 08/25/23 08/26/23 08/26/23 18:59 06:59 18:59 Intake Total 300 Output Total 200 Balance 300 -200 Weight 66.224 kg Intake: Intake, IV Titration 300 Amount Sodium Chloride 0.9% 1, 300 000 ml @ 75 mls/hr IV . [id number] [facility] Rx#:[id number] Output: Urine 200 Other: Voiding Method Toilet Bedside Commode # Voids 2 # Bowel Movements 4 - Exam General appearance: The patient is alert, oriented, appears in no acute distress. HET: Head is normocephalic and atraumatic. Conjunctiva pink. Sclera anicteric. Neck: Supple without lymphadenopathy. Abdomen: Soft, nontender, nondistended with bowel sounds. No guarding or rigidity. Extremities: Normal skin color and turgor. No pedal edema Skin: No rashes, no jaundice Neurological: No focal deficits. Alert and oriented. - Labs CBC & Chem 7: 08/26/23 06:04 08/26/23 06:04 Labs: Abnormal Lab Results - Last 24 Hours (Table) 08/25/23 08/25/23 08/25/23 Range/Units 11:13 15:04 15:04 WBC 12.3 H (3.8-10.6) k/uL RBC (4.10-5.20) X 10*6/uL Hgb (12.0-15.0) g/dL Hct (37.2-46.3) % Neutrophils # 11.6 H (1.3-7.7) k/uL Lymphocytes # 0.4 L (1.0-4.8) k/uL Calcium (8.7-10.3) mg/dL Stool Occult Blood Positive H (Negative) Crossmatch See Detail 08/25/23 08/26/23 08/26/23 Range/Units 19:36 06:04 06:04 WBC 11.2 H (3.8-10.6) k/uL RBC 3.60 L (4.10-5.20) X 10*6/uL Hgb 11.3 L (12.0-15.0) g/dL Hct 34.1 L (37.2-46.3) % Neutrophils # 10.2 H (1.3-7.7) k/uL Lymphocytes # 0.5 L (1.0-4.8) k/uL Calcium 8.5 L (8.7-10.3) mg/dL Stool Occult Blood (Negative) Crossmatch Assessment and Plan (1) Lower GI bleed Narrative/Plan: 52-year-old female with nausea vomiting and diarrhea came into the emergency department with concerns of weakness and fatigue. Patient then started having bright red blood per rectum in the emergency department right prior to plans for discharge. Patient was recently diagnosed with covert infection about 2 weeks a go. She does suffer from some constipation at times. Denies previous history of lower GI bleed. Denies any anticoagulation. Does have associated abdominal pain and cramping. Need to consider possible infectious colitis as patient has elevated WBC. Will order a CT abdomen and pelvis. Continue clear liquid diet. Further recommendations forthcoming based on clinical course. CT abdomen and pelvis ordered and reviewed showing acute colitis along the descending colon. Bleeding has improved. Unclear if this is infectious versus ischemic however with patient's nausea vomiting and leukocytosis will treat as possible infectious with antibiotics. Current Visit: Yes Status: Acute Code(s): K92.2 - GASTROINTESTINAL HEMORRHAGE, UNSPECIFIED SNOMED Code(s): 39198620 (2) Abdominal pain Current Visit: Yes Status: Acute Code(s): R10.9 - UNSPECIFIED ABDOMINAL PAIN SNOMED Code(s): 27481492 (3) Nausea and vomiting Current Visit: Yes Status: Acute Code(s): R11.2 - NAUSEA WITH VOMITING, UNSPECIFIED SNOMED Code(s): 10571273 (4) Rectal prolapse Narrative/Plan: Gen. surgery consultation for rectal prolapse canceled as bleeding has stopped and so has prolapse. Rectal bleeding all likely related to acute colitis. Patient can follow-up for rectal prolapse in outpatient setting. Current Visit: Yes Status: Acute Code(s): K62.3 - RECTAL PROLAPSE SNOMED Code(s): 26444615 (5) Diarrhea Narrative/Plan: Improved. C. diff negative Current Visit: Yes Status: Acute Code(s): R19.7 - DIARRHEA, UNSPECIFIED SNOMED Code(s): 49139663 Plan: 1. Continue symptomatic and supportive care 2. CT abdomen and pelvis with contrast reviewed 3. Start Zosyn IV every 8 hours 4. Patient may have clear liquid diet 5. Consult to Gen. surgery canceled by GI for rectal prolapse, patient may follow-up as an outpatient 6. Anticipate discharge tomorrow 7. Recommend outpatient colonoscopy in 4-6 weeks Thank you for this consultation, we will continue to follow. Dr. Valentina Dunn I agree with the dictator's note, documented as a scribe by Argenis Herr.
[2023-08-26] MEDS: ACETAMINOPHEN TAB 325 MG TAB PO PRN (13:04)
[2023-08-26] MEDS: METOCLOPRAMIDE 5 MG/ML 2 ML VIAL IVP PRN ×2 (13:05→20:37)
--- NOTE | 2023-08-26 13:11 | P.GSCN ---
History of Present Illness Consult date: 08/26/23 History of present illness: CHIEF COMPLAINT: Vomiting and diarrhea Reason for consult: rectal bleeding with rectal prolapse HISTORY OF PRESENT ILLNESS: This is a 52-year-old female who presented to the hospital with complaints of vomiting and diarrhea that started Friday morning around 2 AM. She initially had severe cramping across the lower abdomen and was having profuse vomiting and diarrhea. She came into the ER for further evaluation. Initially she was going to be discharged from the ER but then started having bright red blood from her rectum. Patient reports that her did note that there was blood in the stools at home as well. Patient denies any prior history of GI bleed. Denies any prior history of colitis. Last colonoscopy was in 2014 and patient reports that it was negative. She had a computed tomography scan of the abdomen and pelvis had shown colitis in the descending colon. Patient's last episode of vomiting was yesterday evening. And last stool was around 3 AM this morning with no blood. She reports stool is small. Patient continues to have nausea. Patient does have a known history of constipation. She reports that she's been doing with a rectal prolapse. The prolapse reduces on its own. The rectal prolapse protrudes usually after her bowel movements and sometimes retracts right afterwards or little after the b owel movement. She does have a family history of an uncle with colon cancer and a grandfather with stomach cancer. PAST MEDICAL HISTORY: See below PAST SURGICAL HISTORY: See below MEDICATIONS: See below ALLERGIES: See below SOCIAL HISTORY: No illicit drug use. REVIEW OF SYSTEMS: CONSTITUTIONAL: Denies fever or chills. HEENT: Denies blurred vision, vision changes, or eye pain. Denies hemoptysis CARDIOVASCULAR: Denies chest pain or pressure. RESPIRATORY: No shortness of breath. GASTROINTESTINAL: See HPI for pertinent findings HEMATOLOGIC: Denies bleeding disorders. GENITOURINARY: Denies any blood in urine or increased urinary frequency. SKIN: Denies pruitis. Denies rash. PHYSICAL EXAM: VITAL SIGNS: Reviewed GENERAL: Well-developed in no acute distress. ABDOMEN: Soft. Nondistended. nondistended. No rectal prolapse at this time NEUROLOGIC: Alert and oriented. Cranial nerves II through XII grossly intact. LABORATORY DATA: WBC 12.3 to 7.68 HGB 13.7-11.3 plt 272 Sodium 138 potassium 3.8 creatinine 0.6 Stool for occult blood positive Stool for C. diff negative IMAGING: Computed tomography scan abdomen and pelvis reports colitis of the descending colon no evidence of obstruction or perforation organizing fluid collection ASSESSMENT: 1. Rectal prolapse. Currently reduced 2. Colitis of the descending colon noted on CT 3. Possible viral enteritis 4. Nausea and vomiting 5. Diarrhea 6. Lower GI bleed with bright red blood per rectum PLAN: -Possible colonoscopy on , 08/28/[address] Damon -Continue clear liquid diet -Continue IV fluids -Tylenol ordered for headache -Continue antibiotics -Continue antiemetics -Continue to monitor for any signs or symptoms of bleeding -Continue monitoring -Repeat CBC in a.m. Physician Upholstery Trimmer note has been reviewed by physician. Signing provider agrees with the documented findings, assessment, and plan of care. I have personally seen and examined the patient, reviewed the SENIOR LINUX SYSTEMS ENGINEER /PAs history, exam and MDM and agree with the assessment and plan as written. Based on total visit time, I have performed more than 50% of the visit. As above: Patient with nausea vomiting, diarrhea, and crampy abdominal pain. Patient has history of intermittent rectal prolapse. We'll tentatively plan colonoscopy on but we'll see how the patient is doing tomorrow. Continue clear liquids. Continue antibiotics. Will follow. Past Medical History Past Medical History: GERD/Reflux Additional Past Medical History / Comment(s): IBS History of Any Multi-Drug Resistant Organisms: None Reported Past Surgical History: Bladder Surgery, Hysterectomy, Orthopedic Surgery, Uterine Ablation Additional Past Surgical History / Comment(s): BUNIONECTOMY LT FOOT. BLADDER S LING Past Anesthesia/Blood Transfusion Reactions: Postoperative Nausea & Vomiting (PONV) Past Psychological History: No Psychological Hx Reported Smoking Status: Never smoker Past Alcohol Use History: Occasional Past Drug Use History: None Reported - Past Family History Mother Family Medical History: No Reported History Father Family Medical History: Dementia Medications and Allergies Home Medications Medication Instructions Recorded Confirmed Type Dextroamphetamine/Amphetamine 20 mg PO DAILY 07/24/22 08/25/23 History [Adderall] Estrogens, Conjugated [Premarin] 0.3 mg PO HS 07/24/22 08/25/23 History Pantoprazole [Protonix] 40 mg PO HS 07/24/22 08/25/23 History Ascorbic Acid [Vitamin C] 1,000 mg PO DAILY PRN 08/25/23 08/25/23 History Aspirin/Acetaminophen/Caffeine 2 tab PO Q6H PRN 08/25/23 08/25/23 History [Excedrin Migraine Caplet] Dicyclomine [Bentyl] 20 mg PO QID PRN #15 tablet 08/25/23 Rx LORazepam [Ativan] 1 mg PO DAILY PRN 08/25/23 08/25/23 History Ondansetron Odt [Zofran Odt] 4 mg PO Q8HR PRN #10 tab 08/25/23 Rx Allergies Allergy/AdvReac Type Severity Reaction Status Date / Time No Known Allergies Allergy Verified 08/25/23 11:41 Surgical - Exam Vital Signs Temp Pulse Resp BP Pulse Ox 98.1 F 74 18 121/77 99 08/25/23 07:45 08/25/23 07:45 08/25/23 07:45 08/25/23 07:45 08/25/23 07:45 Results - Labs 08/26/23 06:04 08/26/23 06:04 Abnormal Lab Results - Last 24 Hours (Table) 08/25/23 08/25/23 08/25/23 Range/Units 15:04 15:04 19:36 WBC 12.3 H 11.2 H (3.8-10.6) k/uL RBC (4.10-5.20) X 10*6/uL Hgb (12.0-15.0) g/dL Hct (37.2-46.3) % Neutrophils # 11.6 H 10.2 H (1.3-7.7) k/uL Lymphocytes # 0.4 L 0.5 L (1.0-4.8) k/uL Calcium (8.7-10.3) mg/dL Crossmatch See Detail 08/26/23 08/26/23 Range/Units 06:04 06:04 WBC (3.8-10.6) k/uL RBC 3.60 L (4.10-5.20) X 10*6/uL Hgb 11.3 L (12.0-15.0) g/dL Hct 34.1 L (37.2-46.3) % Neutrophils # (1.3-7.7) k/uL Lymphocytes # (1.0-4.8) k/uL Calcium 8.5 L (8.7-10.3) mg/dL Crossmatch Diabetes panel 08/26/23 Range/Units 06:04 Sodium 138 (135-145) mmol/L Potassium 3.8 (3.5-5.5) mmol/L Chloride 106 (96-109) mmol/L Carbon Dioxide 25.5 (21.6-31.8) mmol/L BUN 9.9 (9.0-27.0) mg/dL Creatinine 0.6 (0.6-1.5) mg/dL Glucose 91 (70-110) mg/dL Calcium 8.5 L (8.7-10.3) mg/dL Calcium panel 08/26/23 Range/Units 06:04 Calcium 8.5 L (8.7-10.3) mg/dL Pituitary panel 08/26/23 Range/Units 06:04 Sodium 138 (135-145) mmol/L Potassium 3.8 (3.5-5.5) mmol/L Chloride 106 (96-109) mmol/L Carbon Dioxide 25.5 (21.6-31.8) mmol/L BUN 9.9 (9.0-27.0) mg/dL Creatinine 0.6 (0.6-1.5) mg/dL Glucose 91 (70-110) mg/dL Calcium 8.5 L (8.7-10.3) mg/dL Adrenal panel 08/26/23 Range/Units 06:04 Sodium 138 (135-145) mmol/L Potassium 3.8 (3.5-5.5) mmol/L Chloride 106 (96-109) mmol/L Carbon Dioxide 25.5 (21.6-31.8) mmol/L BUN 9.9 (9.0-27.0) mg/dL Creatinine 0.6 (0.6-1.5) mg/dL Glucose 91 (70-110) mg/dL Calcium 8.5 L (8.7-10.3) mg/dL
[2023-08-26] MEDS ORDERED: LORazepam 1 MG TAB PO PRN (14:39)
--- NOTE | 2023-08-26 16:56 | PN ---
PROGRESS NOTE DATE OF SERVICE: 08/26/2023 SUBJECTIVE: This is a 52-year-old woman, who was admitted with lower GI bleeding, also had features of descending colitis. The patient is started on broad-spectrum IV antibiotics. GI and Surgery are following the patient closely. White count is 11.68. PAST MEDICAL HISTORY: Reviewed. REVIEW OF SYSTEMS: Fourteen-point review is negative except as mentioned earlier. CURRENT MEDICATIONS: Reviewed include IV Zosyn. PHYSICAL EXAMINATION: VITAL SIGNS: Pulse is 69, blood pressure 99/60, respirations 16. CHEST: Clear to auscultation. CARDIOVASCULAR: S1 and S2. ABDOMEN: Soft. Mild diffuse tenderness. No guarding. No masses palpable. LEGS: No edema. NERVOUS SYSTEM: Nonfocal. LABORATORY DATA: Noted. Clostridium difficile is negative. ASSESSMENT: 1. Acute diarrheal disease. 2. Acute descending colitis. 3. Dehydration. 4. Possible rectal prolapse. 5. Lower gastrointestinal bleed, possibly secondary to rectal prolapse or diverticulitis. 6. Increased WBC. 7. Gastroesophageal reflux disease. 8. History of degenerative joint disease. RECOMMENDATIONS: Recommend to continue current medications. Continue symptomatic treatment. I would recommend to continue with broad-spectrum IV antibiotics. Closely follow with Gastroenterology. Advance diet slowly. Otherwise, the patient will definitely require endoscopies, possibly as a short-term followup. Overall prognosis is guarded. Repeat labs are ordered. Further recommendations to follow. See orders for details. MMODL / IJN: [id number] /
[2023-08-26] MEDS: HYDROmorphone 0.5 MG/0.5 ML SYRINGE IVP PRN (18:05)
[2023-08-27] MEDS: PIPERACILLIN-TAZOBACTAM 3.375 GM in SODIUM CHLORIDE 0.9% 100 ML IVPB SCH ×3 (00:19→17:10)
[2023-08-27] MEDS: SODIUM CHLORIDE 0.9% 1,000 ML IV SCH ×2 (03:46→09:45)
[2023-08-27] MEDS: PANTOPRAZOLE 40 MG/10 ML VIAL IV SCH ×2 (09:46→22:00)
[2023-08-27] MEDS: NON FORMULARY DRUG (Dextroamphetamine/Amphetamine [Adderall] 20 MG Tablet) PO SCH (09:46)
[2023-08-27 11:01] LABS: Basophils # (A) 0.02 X 10*3/uL (0.00-0.10); Basophils % (A) 0.3 %; Eosinophils # (A) 0.09 X 10*3/uL (0.04-0.35); Eosinophils % (A) 1.4 %; HCT 34.9 % (37.2-46.3); HGB 11.5 g/dL (12.0-15.0); Lymphocytes # (A) 2.44 X 10*3/uL (0.90-5.00); Lymphocytes % (A) 37.2 %; MCH 31.1 pg (27.0-32.0); MCV 94.3 FL (80.0-97.0); Mean Platelet Volume 9.9 FL (9.5-12.2); Monocytes # (A) 0.61 X 10*3/uL (0.20-1.00); Monocytes % (A) 9.3 %; NRBC Per 100 WBC 0 X 10*3/uL (0.00-0.01); Neutrophils # (A) 3.39 X 10*3/uL (1.80-7.70); Neutrophils % (A) 51.6 %; Platelet Count 271 X 10*3/uL (140-440); RDW 12.1 % (11.5-14.5); WBC 6.56 X 10*3/uL (4.50-10.00)
[2023-08-27] MEDS ORDERED: LACTULOSE 20 GM/30 ML CUP PO ONE (11:02)
--- NOTE | 2023-08-27 11:02 | P.PN ---
Subjective Progress Note Date: 08/27/23 CHIEF COMPLAINT: Vomiting and diarrhea HISTORY OF PRESENT ILLNESS: Patient has had no further blood in her stools. Her last bowel movement was diarrhea yesterday morning around 3 AM and had no blood. She did have severe abdominal cramping during the night and received a dose of IV Dilaudid with improvement in the pain. She did have one episode of vomiting at 6 PM improved with Zofran. Patient reports no nausea at this time. She does report feeling bloated. Afebrile. Vitals stable. Labs pending for today PHYSICAL EXAM: VITAL SIGNS: Reviewed. GENERAL: Well-developed in no acute distress. ABDOMEN: Soft. Nondistended. Nontender. No rectal prolapse at this time NEUROLOGIC: Alert and oriented. Cranial nerves II through XII grossly intact. ASSESSMENT: 1. Rectal prolapse. Currently reduced 2. Colitis of the descending colon noted on CT 3. Possible viral enteritis 4. Nausea and vomiting 5. Diarrhea 6. Lower GI bleed with bright red blood per rectum PLAN: -Patient scheduled for colonoscopy tomorrow, 08/28/[address] Damon -Start [facility] bowel prep -Continue clear liquid diet -Nothing by mouth after midnight Physician Mysql Developer note has been reviewed by physician. Signing provider agrees with the documented findings, assessment, and plan of care. Objective - Vital Signs Vital signs: Vital Signs Temp 97.8 F 08/27/23 07:22 Pulse 72 08/27/23 07:22 Resp 16 08/27/23 07:22 BP 119/70 08/27/23 07:22 Pulse Ox 97 08/27/23 07:22 FiO2 Intake & Output 08/26/23 08/27/23 08/27/23 18:59 06:59 18:59 Intake Total 720 600 Balance 720 600 Intake: Intake, IV Titration 300 Amount Sodium Chloride 0.9% 1, 300 000 ml @ 75 mls/hr IV . [id number] [facility] Rx#:[id number] Oral 720 300 Other: Voiding Method Toilet Bedside Commode # Voids 2 - Labs CBC & Chem 7: 08/26/23 06:04 08/26/23 06:04 Labs: Abnormal Lab Results - Last 24 Hours (Table) 08/25/23 Range/Units 15:04 Crossmatch See Detail Microbiology - Last 24 Hours (Table) 08/25/23 15:04 Blood Culture - Preliminary Blood
[2023-08-27] MEDS: ACETAMINOPHEN TAB 325 MG TAB PO PRN (11:14)
[2023-08-27 11:23] LABS: ALT 19 U/L (8-44); AST 27 U/L (13-35); Albumin 3.1 g/dL (3.8-4.9); Albumin/Globulin Ratio 1.48 Ratio (1.60-3.17); Alkaline Phosphatase 56 U/L (41-126); Blood Urea Nitrogen 8.4 mg/dL (9.0-27.0); Calcium 8.6 mg/dL (8.7-10.3); Carbon Dioxide 22.1 mmol/L (21.6-31.8); Chloride 108 mmol/L (96-109); Globulin 2.1 g/dL (1.6-3.3); Glucose 71 mg/dL (70-110); Potassium 3.5 mmol/L (3.5-5.5); Sodium 142 mmol/L (135-145); Total Bilirubin 0.3 mg/dL (0.3-1.2); Total Protein 5.2 g/dL (6.2-8.2)
[2023-08-27] MEDS ORDERED: PEG 3350 (236 GM/BTL) + LYTES 4,000 ML BOTTLE PO ONE (13:00)
--- NOTE | 2023-08-27 16:05 | PN ---
PROGRESS NOTE DATE OF SERVICE: 08/27/2023 SUBJECTIVE: This is a 52-year-old woman, who was admitted with GI bleed, also had features of colitis. The patient also has persistent nausea. No chest pain. No palpitation. No fever. PHYSICAL EXAMINATION: VITAL SIGNS: Pulse 77, blood pressure 119/68, respirations 16. CHEST: Clear to auscultation. CARDIOVASCULAR: S1 and S2. ABDOMEN: Soft. Mild diffuse discomfort. LABORATORY DATA: Noted. ASSESSMENT: 1. Acute diarrheal disease with gastroenteritis possibly. 2. Acute descending colitis. 3. Dehydration. 4. Possible rectal prolapse with lower gastrointestinal bleeding. 5. Increased WBC. 6. Gastroesophageal reflux disease. 7. History of degenerative joint disease. RECOMMENDATIONS: Recommend to continue current medications. Continue symptomatic treatment. Otherwise, repeat labs. I would also recommend closely follow with Surgery. Further recommendations to follow. MMJOSEL / DONN: [id number] /
--- NOTE | 2023-08-27 17:24 | P.PN ---
Subjective Progress Note Date: 08/27/23 Principal diagnosis: GI bleed This a 52-year-old female who presented to the emergency department this morning after having several episodes of emesis. Patient had nausea and vomiting throughout the day and diarrhea. She denied any coffee-ground emesis or hematemesis. States diarrhea was normal until she was getting ready to be discharged from the emergency department and she started having bright red blood per rectum. She also is complaining of lower abdominal pain and cramping associated with her diarrhea. States that she was getting diaphoretic and feeling weak. She states that she does have problems with constipation in the past, she noticed that she was having a protrusion from her rectum throughout the day yesterday and today. She states that every time she stands up her rectum is protruding and when she gets up to have a bowel movement it is all blood. She is able to push back the rectum, however every time she stands up it protrudes and is painful. She denies any previous GI bleed. States that she had a colonoscopy she believes in 2014 for some GI issues at that time however states that her colonoscopy was normal. She denies being on any anti coagulation. WBC 16.5 hemoglobin 14.4 hematocrit 42 platelet count 339,000 sodium 142 potassium 4.4 albumin 20 creatinine 0.6 total bilirubin 0.8 AST 33 ALT 23 alkaline phosphatase 72 amylase 92 lipase 47 08/26/2023 Patient seen and examined today as a follow-up. She had her CT of the abdomen and pelvis with contrast reporting colitis within the descending colon. Patient states she hasn't had any further bowel movement or bleeding since 1 AM. Last episode of vomiting was yesterday around 5 PM still has some occasional nausea. States also still having some lower abdominal cramping, which has improved though since yesterday. States she has not had the rectal prolapse since last night. She's been afebrile. Today's labs WBC 7.6 hemoglobin 11.3 hematocrit 34 sodium 138 potassium 3.8 the 19.9 creatinine 0.6 C. diff negative. 08/27/2023 Patient seen and examined today as a follow-up. No further rectal bleeding. Patient did have some cramping through the night and an episode of emesis early this morning. No further rectal bleeding. Patient will follow with Dr. Damon from general surgery. Objective - Vital Signs Vital signs: Vital Signs Temp 98.1 F 08/27/23 01:31 Pulse 77 08/27/23 01:31 Resp 16 08/27/23 01:31 BP 109/68 08/27/23 01:31 Pulse Ox 98 08/27/23 01:31 FiO2 Intake & Output 08/26/23 08/26/23 08/27/23 06:59 18:59 06:59 Intake Total 720 600 Output Total 200 Balance -200 720 600 Intake: Intake, IV Titration 300 Amount Sodium Chloride 0.9% 1, 300 000 ml @ 75 mls/hr IV . [id number] [facility] Rx#:[id number] Oral 720 300 Output: Urine 200 Other: Voiding Method Toilet Toilet Bedside Commode Bedside Commode # Voids 2 - Exam General appearance: The patient is alert, oriented, appears in no acute distress. HET: Head is normocephalic and atraumatic. Conjunctiva pink. Sclera anicteric. Neck: Supple without lymphadenopathy. Abdomen: Soft, nontender, nondistended with bowel sounds. No guarding or rigidity. Extremities: Normal skin color and turgor. No pedal edema Skin: No rashes, no jaundice Neurological: No focal deficits. Alert and oriented. - Labs CBC & Chem 7: 08/27/23 06:21 08/27/23 06:21 Labs: Abnormal Lab Results - Last 24 Hours (Table) 08/25/23 08/26/23 08/26/23 Range/Units 15:04 06:04 06:04 RBC 3.60 L (4.10-5.20) X 10*6/uL Hgb 11.3 L (12.0-15.0) g/dL Hct 34.1 L (37.2-46.3) % Calcium 8.5 L (8.7-10.3) mg/dL Crossmatch See Detail Microbiology - Last 24 Hours (Table) 08/25/23 15:04 Blood Culture - Preliminary Blood Assessment and Plan (1) Lower GI bleed Narrative/Plan: 52-year-old female with nausea vomiting and diarrhea came into the emergency department with concerns of weakness and fatigue. Patient then started having bright red blood per rectum in the emergency department right prior to plans for discharge. Patient was recently diagnosed with covert infection about 2 weeks ago. She does suffer from some constipation at times. Denies previous history of lower GI bleed. Denies any anticoagulation. Does have associated abdominal pain and cramping. Need to consider possible infectious colitis as patient has elevated WBC. Will order a CT abdomen and pelvis. Continue clear liquid diet. Further recommendations forthcoming based on clinical course. CT abdomen and pelvis ordered and reviewed showing acute colitis along the descending colon. Bleeding has improved. Unclear if this is infectious versus ischemic however with patient's nausea vomiting and leukocytosis will treat as possible infectious with antibiotics. No plans for endoscopic evaluation from gastroenterology. Patient following with Dr. Damon. Continue with further recommendations from general surgery Current Visit: Yes Status: Acute Code(s): K92.2 - GASTROINTESTINAL HEMORRHAGE, UNSPECIFIED SNOMED Code(s): 54498170 (2) Abdominal pain Current Visit: Yes Status: Acute Code(s): R10.9 - UNSPECIFIED ABDOMINAL PAIN SNOMED Code(s): 41633208 (3) Nausea and vomiting Current Visit: Yes Status: Acute Code(s): R11.2 - NAUSEA WITH VOMITING, UNSPECIFIED SNOMED Code(s): 08712510 (4) Rectal prolapse Current Visit: Yes Status: Acute Code(s): K62.3 - RECTAL PROLAPSE SNOMED Code(s): 59766546 (5) Diarrhea Current Visit: Yes Status: Acute Code(s): R19.7 - DIARRHEA, UNSPECIFIED SNOMED Code(s): 23809573 Plan: 1. Continue symptomatic and supportive care 2. CT abdomen and pelvis with contrast reviewed 3. Patient to continue with further recommendations from general surgery Thank you for this consultation, we will sign off at this time. Dr. Valentina Dunn I agree with the dictator's note, documented as a scribe by Argenis Herr.
[2023-08-28] MEDS: PIPERACILLIN-TAZOBACTAM 3.375 GM in SODIUM CHLORIDE 0.9% 100 ML IVPB SCH ×3 (00:02→15:52)
[2023-08-28 07:15] LABS: Basophils % (A) 0 %; Eosinophils # (A) 0.1 k/uL (0-0.7); Eosinophils % (A) 2 %; HCT 33.1 % (34.0-46.0); HGB 11.4 gm/dL (11.4-16.0); Lymphocytes # (A) 2.2 k/uL (1.0-4.8); Lymphocytes % (A) 48 %; MCH 32.1 pg (25.0-35.0); MCHC 34.3 g/dL (31.0-37.0); MCV 93.6 fL (80.0-100.0); Mean Platelet Volume 7.1; Monocytes # (A) 0.3 k/uL (0-1.0); Monocytes % (A) 6 %; Neutrophils # (A) 1.9 k/uL (1.3-7.7); Neutrophils % (A) 40 %; Platelet Count 278 k/uL (150-450); RBC 3.54 m/uL (3.80-5.40); RDW 12.1 % (11.5-15.5); WBC 4.6 k/uL (3.8-10.6)
[2023-08-28 07:25] LABS: African American GFR (CKD) >90 (>60 ml/min/1.73 sqM); Anion Gap 9 mmol/L; Blood Urea Nitrogen 5 mg/dL (7-17); Calcium 8.3 mg/dL (8.4-10.2); Carbon Dioxide 25 mmol/L (22-30); Chloride 106 mmol/L (98-107); Glucose 70 mg/dL (74-99); Non-African American GFR(CKD) >90 (>60 ml/min/1.73 sqM); Potassium 3.4 mmol/L (3.5-5.1); Sodium 140 mmol/L (137-145)
[2023-08-28] MEDS: SODIUM CHLORIDE 0.9% 1,000 ML IV SCH ×2 (07:46→09:20)
[2023-08-28] MEDS ORDERED: POTASSIUM CHLORIDE ER 20 MEQ TAB.ER PO STA (08:10)
[2023-08-28] MEDS: NON FORMULARY DRUG (Dextroamphetamine/Amphetamine [Adderall] 20 MG Tablet) PO SCH (09:16)
[2023-08-28] MEDS: PANTOPRAZOLE 40 MG/10 ML VIAL IV SCH ×2 (09:16→21:33)
[2023-08-28] MEDS: ACETAMINOPHEN TAB 325 MG TAB PO PRN (09:18)
[2023-08-28] MEDS ORDERED: PEG 3350 (236 GM/BTL) + LYTES 4,000 ML BOTTLE PO ONE (11:30)
[2023-08-28] MEDS ORDERED: PROPOFOL 10 MG/ML 20 ML VIAL IV ONE (14:15)
[2023-08-28] MEDS ORDERED: LIDOCAINE 1% INJ 10MG/ML (20 ML MDV) ONE (14:15)
[2023-08-28] MEDS ORDERED: SODIUM CHLORIDE 0.9% 500 ML 500 ML IV ONE (14:19)
--- NOTE | 2023-08-28 14:41 | P.PCN ---
Date of Procedure: 08/28/23 Procedure(s) Performed: PREOPERATIVE DIAGNOSIS: Rectal bleeding POSTOPERATIVE DIAGNOSIS: Mild left-sided colitis, proctitis, diverticulosis PROCEDURE: Colonoscopy with biopsy ANESTHESIA: [facility] [place] SURGEON: Ken Damon M.D. SPECIMENS: Left colon, proctitis ENDOSCOPIC PROCEDURE: The patient was placed on the endoscopy table in the left decubitus position. The Olympus colonoscope was inserted into the anus and passed under direct visualization to the base of the cecum. The appendiceal orifice was visualized. From that point the scope was slowly withdrawn inspecting all surfaces carefully. There were no neoplastic inflammatory or polypoid lesions throughout the cecum, ascending, or transverse colon. In the distal descending colon and sigmoid colon there was mild edema and erythema of the mucosa. Biopsies were taken. In the rectum there was an area of erythema as well. This may have been related to the recent rectal prolapse. This was non-circumferential. This was not ulcerated. Biopsies of the proctitis took place. The patient had mild left-sided diverticulosis as well. Digital rectal examination was normal. The patient was taken to the recovery room in stable condition per anesthesia guidelines. RECOMMENDATIONS: Await biopsy results. Resume diet. May discharge. Follow-up as outpatient.
[2023-08-28] MEDS ORDERED: Acetaminophen-Codeine 300-30mg TAB PO PRN (14:48)
--- NOTE | 2023-08-28 16:58 | PN ---
PROGRESS NOTE DATE OF SERVICE: 08/28/2023 SUBJECTIVE: This is a 52-year-old woman, who was admitted with acute diarrheal disease, possibly colitis, and dehydration. Also, complains of cough. The patient is slated to go for colonoscopy today. No chest pain. No palpitations. PHYSICAL EXAMINATION: VITAL SIGNS: Pulse 52, blood pressure 108/65, respirations 19. CHEST: Clear to auscultation. CARDIOVASCULAR: S1 and S2 muffled. ABDOMEN: Soft and nontender. LABORATORY DATA: Reviewed. ASSESSMENT: 1. Acute diarrheal disease with gastroenteritis possibly. 2. Acute descending colitis. 3. Possible upper respiratory infection. 4. Dehydration. 5. Possible rectal prolapse with lower gastrointestinal bleeding. 6. Increased WBC. 7. Gastroesophageal reflux disease. 8. History of degenerative joint disease. RECOMMENDATIONS: Recommend to continue current medications. Continue symptomatic treatment. Otherwise, colonoscopy. Continue with empiric antibiotics. Closely follow with Surgery. Further recommendations to follow. MMODL / IJN: [id number] /
--- NOTE | 2023-08-28 22:59 | XR ---
EXAMINATION: XR chest 1V portable DATE AND TIME: 08/28/2023 5:28 PM CLINICAL INDICATION: [facility]; [facility]f. Inpatient. TECHNIQUE: Departmental protocol COMPARISON: AP upright portable FINDINGS: The lungs are clear. The pleural spaces are negative. The cardiac silhouette is not enlarged. The skeletal structures and soft tissues are negative for acute findings. IMPRESSION: No acute radiographic process.
[2023-08-29] MEDS: PIPERACILLIN-TAZOBACTAM 3.375 GM in SODIUM CHLORIDE 0.9% 100 ML IVPB SCH ×2 (01:20→09:42)
[2023-08-29 01:34] VITALS: RESP 16
[2023-08-29 08:31] VITALS: BP 126/82; PULSE 58; TEMP 98.2
[2023-08-29 08:34] LABS: Basophils # (A) 0.01 X 10*3/uL (0.00-0.10); Basophils % (A) 0.2 %; HCT 32.4 % (37.2-46.3); HGB 11.1 g/dL (12.0-15.0); Lymphocytes # (A) 2.62 X 10*3/uL (0.90-5.00); Lymphocytes % (A) 51.8 %; MCH 31.2 pg (27.0-32.0); MCHC 34.3 g/dL (32.0-37.0); Mean Platelet Volume 9.8 FL (9.5-12.2); Monocytes # (A) 0.41 X 10*3/uL (0.20-1.00); Monocytes % (A) 8.1 %; NRBC Per 100 WBC 0 X 10*3/uL (0.00-0.01); Neutrophils # (A) 1.91 X 10*3/uL (1.80-7.70); Neutrophils % (A) 37.7 %; Platelet Count 299 X 10*3/uL (140-440); RBC 3.56 X 10*6/uL (4.10-5.20); WBC 5.06 X 10*3/uL (4.50-10.00)
[2023-08-29 09:23] LABS: BUN/Creat Ratio 7.57 Ratio (12.00-20.00); Blood Urea Nitrogen 5.3 mg/dL (9.0-27.0); Calcium 8.6 mg/dL (8.7-10.3); Chloride 108 mmol/L (96-109); Glucose 87 mg/dL (70-110); Potassium 3.8 mmol/L (3.5-5.5); Sodium 141 mmol/L (135-145)
[2023-08-29] MEDS: NON FORMULARY DRUG (Dextroamphetamine/Amphetamine [Adderall] 20 MG Tablet) PO SCH (09:43)
[2023-08-29] MEDS: PANTOPRAZOLE 40 MG/10 ML VIAL IV SCH (09:43)
[2023-08-29] MEDS: SODIUM CHLORIDE 0.9% 1,000 ML IV SCH (09:44)
--- NOTE | 2023-08-29 12:43 | P.PN ---
Progress Note - Text Progress Note Date: 08/29/23 Patient doing well this morning. Denies pain. No rectal bleeding. She did have a small episode of rectal prolapse again last night. He is feeling well. Tolerating her diet. She is very anxious for discharge. Abdomen: Soft, nontender, nondistended Will plan discharge today. Discussed with primary service. Short course of antibiotics postdischarge is reasonable. Follow-up as outpatient.
--- NOTE | 2023-08-29 20:59 | P.DS ---
Providers Date of admission: 08/26/23 13:59 Expected date of discharge: 08/29/23 Attending physician: Dung Mccoy MD Consults: 08/27/23 15:39 Consult Physician Routine Consulting Provider: Ken Damon Consult Reason/Comments: rectal prolapse Do you want consulting provider notified?: Already Contacted Primary care physician: Bartolome Alejo [place] Hospital Course: Final Diagnosis Acute diarrheal disease with gastroenteritis Acute ascending colitis Possible upper respiratory tract infection Dehydration Rectal prolapse with lower gastrointestinal bleeding Increased WBC, improved Gastroesophageal reflux disease History of degenerative joint disease Anxiety GI prophylaxis DVT prophylaxis Full code Discharge disposition Patient is being discharged in a stable condition with guarded prognosis to home. Patient will follow-up with Dr. Alejo as well as general surgery Dr. Damon in the outpatient setting upon discharge. Patient is to continue with oral Augmentin twice daily for a short course as well as Protonix. Total time taken is greater than 35 minutes. Hospital course This is a 52-year-old female who was recently admitted with concerns of GI bleed and rectal prolapse and found to have acute ascending colitis being closely monitored with general surgery as well as GI evaluation. Patient was continued on IV antibiotics and will transition to oral Augmentin for a short course to complete the course. Patient underwent colonoscopy and will follow-up with general surgery Dr. Damon in the outpatient setting. Patient has been cleared for discharge home and encouraged to slowly advance diet as tolerated. Please refer to other consultation notes for further HPI. Currently no reports of chest pain, shortness of breath, or palpitations. Patient is afebrile. No reports of nausea or vomiting and patient is tolerating diet. patient reports to feeling improved and would like to go home. Patient will be discharged home today. Physical exam: Gen: This is a 52-year-old female who was awake, alert and oriented 3, well- developed, well-nourished HEENT: Head is atraumatic, normocephalic. Pupils equal, round. Sclerae is anicteric. NECK: Supple. No JVD. No lymphadenopathy. No thyromegaly. LUNGS: Clear to auscultation. No wheezes or rhonchi. No intercostal retractions. HEART: Regular rate and rhythm. No murmur. ABDOMEN: Soft. Bowel sounds are present. No masses. No tenderness. EXTREMITIES: No pedal edema. No calf tenderness. NEUROLOGICAL: Patient is awake, alert and oriented x3. Cranial nerves 2 through 12 are grossly intact. Please refer to medication reconciliation sheet for a list of medications. The impression and plan of care has been dictated by Disha Donald, Nurse Practitioner as directed. Dr. Lino MD I have performed a history and examination and MDM of this patient, discussed the same with the dictator, and agree with the dictator's assessment and plan as written ,documented as a scribe. Based on total visit time, I have performed more than 50% of the visit. Patient Condition at Discharge: Stable Plan - Discharge Summary Discharge Rx Participant: Yes New Discharge Prescriptions: New Dicyclomine [Bentyl] 20 mg PO QID PRN #15 tablet PRN Reason: Pain Amoxic-Pot Clav 875-125Mg [Augmentin 875-125] 1 tab PO Q12HR 3 Days #6 tab Acetaminophen Tab [Tylenol] 650 mg PO Q4HR PRN tab PRN Reason: Fever And/ Or Pain Ondansetron Odt [Zofran Odt] 4 mg PO Q8HR PRN #10 tab PRN Reason: Nausea Continue Ascorbic Acid [Vitamin C] 1,000 mg PO DAILY PRN PRN Reason: when sick Dextroamphetamine/Amphetamine [Adderall] 20 mg PO DAILY Estrogens, Conjugated [Premarin] 0.3 mg PO HS LORazepam [Ativan] 1 mg PO DAILY PRN PRN Reason: Anxiety Aspirin/Acetaminophen/Caffeine [Excedrin Migraine Caplet] 2 tab PO Q6H PRN PRN Reason: Migraine Headache Changed Pantoprazole [Protonix] 40 mg PO BID 30 Days #60 tab Discharge Medication List Dextroamphetamine/Amphetamine [Adderall] 20 mg PO DAILY 07/24/22 [History] Estrogens, Conjugated [Premarin] 0.3 mg PO HS 07/24/22 [History] Ascorbic Acid [Vitamin C] 1,000 mg PO DAILY PRN 08/25/23 [History] Aspirin/Acetaminophen/Caffeine [Excedrin Migraine Caplet] 2 tab PO Q6H PRN 08/25/23 [History] Dicyclomine [Bentyl] 20 mg PO QID PRN #15 tablet 08/25/23 [Rx] LORazepam [Ativan] 1 mg PO DAILY PRN 08/25/23 [History] Ondansetron Odt [Zofran Odt] 4 mg PO Q8HR PRN #10 tab 08/25/23 [Rx] Acetaminophen Tab [Tylenol] 650 mg PO Q4HR PRN tab 08/29/23 [Rx] Amoxic-Pot Clav 875-125Mg [Augmentin 875-125] 1 tab PO Q12HR 3 Days #6 tab 08/29/23 [Rx] Pantoprazole [Protonix] 40 mg PO BID 30 Days #60 tab 08/29/23 [Rx] Follow up Appointment(s)/Referral(s): Ken Damon MD [Medical Doctor] - 09/11/23 8:00 am Bartolome Alejo DO [Primary Care Provider] - 09/25/23 10:45 am Patient Instructions/Handouts: Acute Nausea and Vomiting (ED), Acute Diarrhea (ED) Activity/Diet/Wound Care/Special Instructions: Prescriptions and sent to pharmacy. Please do follow-up to primary care physician in the next one or 2 days for recheck. Return for uncontrolled vomiting, diarrhea, pain on a fevers, worsening or changing symptoms or any other concerns. Activity Limited until follow-up Follow-up with primary care provider on discharge Follow-up with general surgery and GI outpatient Continue taking medications as prescribed Continue with bland low-residue diet for now and slowly advance as tolerated after follow-up Discharge Disposition: HOME SELF-CARE
== END 2023-08-29 12:31 | disposition home or self-care (01) | DRG 391 ==
LOC: EC 07:41 → 5NMEDONC 11:09 → OBSVTOIN 08-26 13:59
PROVIDERS: ADMIT Internal Medicine; ATTEND Internal Medicine
PROC: 0DBP8ZX Excision of Rectum, Via Natural or Artificial Opening Endoscopic, Diagnostic (ICD-10-PCS; 2023-08-28)
PROC: 0DBG8ZX Excision of Left Large Intestine, Via Natural or Artificial Opening Endoscopic, Diagnostic (ICD-10-PCS; principal; 2023-08-28 15:00)
DX: K52.9 Noninfective gastroenteritis and colitis, unspecified (principal); K57.31 Diverticulosis of large intestine without perforation or abscess with bleeding; K62.3 Rectal prolapse; Z20.822 Contact with and (suspected) exposure to COVID-19; A08.4 Viral intestinal infection, unspecified; F41.9 Anxiety disorder, unspecified; J06.9 Acute upper respiratory infection, unspecified; E86.0 Dehydration; K21.9 Gastro-esophageal reflux disease without esophagitis; Z90.710 Acquired absence of both cervix and uterus
CPT/HCPCS: 36415; 45380; 71045; 74177; 80048; 80053; 82150; 82272; 83690; 85025; 86850; 86900; 86901; 86920; 87040; 87045; 87046; 87324; 87635; 88305; 96361; 96372; 96374; 96375; 99285

== ENCOUNTER 2025-01-28 23:33 | Emergency (ER) | payer SELFPAY ==
[2025-01-28 23:39] VITALS: TEMP 98.3
--- NOTE | 2025-01-29 00:14 | ED ---
Neuro HPI - General Chief Complaint: Neuro Symptoms/Deficit Stated Complaint: leg soreness left side numbness Time Seen by Provider: 01/28/25 23:46 Source: patient, RN notes reviewed Mode of arrival: ambulatory Limitations: no limitations - History of Present Illness Is the patient presenting with stroke symptoms?: Yes Last Known Well Date: 01/28/25 Last Known Well Time: 21:00 Onset/Timin -: hour(s) Location: left face, left arm, left leg History of same: No Place: home Quality: numb, tingling On Anticoagulants: No Context: sudden onset Associated Symptoms: chest pain - Related Data Home Medications: Home Medications Medication Instructions Recorded Confirmed Dextroamphetamine/Amphetamine 20 mg PO DAILY 07/24/22 08/25/23 [Adderall] Estrogens, Conjugated [Premarin] 0.3 mg PO HS 07/24/22 08/25/23 Ascorbic Acid [Vitamin C] 1,000 mg PO DAILY PRN 08/25/23 08/25/23 Aspirin/Acetaminophen/Caffeine 2 tab PO Q6H PRN 08/25/23 08/25/23 [Excedrin Migraine Caplet] LORazepam [Ativan] 1 mg PO DAILY PRN 08/25/23 08/25/23 Previous Rx's Medication Instructions Recorded Dicyclomine [Bentyl] 20 mg PO QID PRN #15 tablet 08/25/23 Ondansetron Odt [Zofran Odt] 4 mg PO Q8HR PRN #10 tab 08/25/23 Acetaminophen Tab [Tylenol] 650 mg PO Q4HR PRN tab 08/29/23 Amoxic-Pot Clav 875-125Mg 1 tab PO Q12HR 3 Days #6 tab 08/29/23 [Augmentin 875-125] Pantoprazole [Protonix] 40 mg PO BID 30 Days #60 tab 08/29/23 Allergies/Adverse Reactions: Allergies Allergy/AdvReac Type Severity Reaction Status Date / Time No Known Allergies Allergy Verified 01/28/25 23:39 Review of Systems ROS Statement: Those systems with pertinent positive or pertinent negative responses have been documented in the HPI. ROS Other: All systems not noted in ROS Statement are negative. Stroke MDM - Lab Data Result diagrams: 01/29/25 00:45 01/29/25 00:45 Lab Results 01/29/25 01/29/25 01/29/25 Range/Units 00:20 00:45 00:45 WBC 7.81 (4.50-10.00) 10*3/uL RBC 4.04 L (4.10-5.20) 10*6/uL Hgb 12.9 (12.0-15.0) g/dL Hct 37.5 (37.2-46.3) % MCV 92.8 (80.0-97.0) fL MCH 31.9 (27.0-32.0) pg MCHC 34.4 (32.0-37.0) g/dL Plt Count 329 (140-440) 10*3/uL MPV 9.4 L (9.5-12.2) fL Immature Gran % (Auto) 0.1 % Neutrophils % 34.4 % Lymphocytes % 50.1 % Monocytes % 6.8 % Eosinophils % 8.1 % Basophils % 0.5 % Immature Gran # 0.01 (0.00-0.04) 10*3/uL Neutrophils # 2.69 (1.80-7.70) 10*3/uL Lymphocytes # 3.91 (0.90-5.00) 10*3/uL Monocytes # 0.53 (0.20-1.00) 10*3/uL Eosinophils # 0.63 H (0.04-0.35) 10*3/uL Basophils # 0.04 (0.00-0.10) 10*3/uL PT 10.4 (10.0-12.5) sec INR 0.9 (<1.2) APTT 20.7 L (22.0-30.0) sec Sodium (137-145) mmol/L Potassium (3.5-5.1) mmol/L Chloride (98-107) mmol/L Carbon Dioxide (22-30) mmol/L Anion Gap mmol/L BUN (7-17) mg/dL Creatinine (0.52-1.04) mg/dL Est GFR (CKD-EPI)AfAm (>60 ml/min/1.73 sqM) Est GFR (CKD-EPI)NonAf (>60 ml/min/1.73 sqM) Glucose (74-99) mg/dL POC Glucose (mg/dL) 99 (70-110) mg/dL POC Glu Chronograph Operator ID Brenda Sudeep Calcium (8.4-10.2) mg/dL Magnesium (1.6-2.3) mg/dL Total Bilirubin (0.2-1.3) mg/dL AST (14-36) U/L ALT (4-34) U/L Alkaline Phosphatase (38-126) U/L Troponin I (0.000-0.034) ng/mL Total Protein (6.3-8.2) g/dL Albumin (3.5-5.0) g/dL 01/29/25 01/29/25 Range/Units 00:45 00:45 WBC (4.50-10.00) 10*3/uL RBC (4.10-5.20) 10*6/uL Hgb (12.0-15.0) g/dL Hct (37.2-46.3) % MCV (80.0-97.0) fL MCH (27.0-32.0) pg MCHC (32.0-37.0) g/dL Plt Count (140-440) 10*3/uL MPV (9.5-12.2) fL Immature Gran % (Auto) % Neutrophils % % Lymphocytes % % Monocytes % % Eosinophils % % Basophils % % Immature Gran # (0.00-0.04) 10*3/uL Neutrophils # (1.80-7.70) 10*3/uL Lymphocytes # (0.90-5.00) 10*3/uL Monocytes # (0.20-1.00) 10*3/uL Eosinophils # (0.04-0.35) 10*3/uL Basophils # (0.00-0.10) 10*3/uL PT (10.0-12.5) sec INR (<1.2) APTT (22.0-30.0) sec Sodium 136 L (137-145) mmol/L Potassium 4.1 (3.5-5.1) mmol/L Chloride 100 (98-107) mmol/L Carbon Dioxide 28 (22-30) mmol/L Anion Gap 8 mmol/L BUN 14 (7-17) mg/dL Creatinine 0.68 (0.52-1.04) mg/dL Est GFR (CKD-EPI)AfAm >90 (>60 ml/min/1.73 sqM) Est GFR (CKD-EPI)NonAf >90 (>60 ml/min/1.73 sqM) Glucose 98 (74-99) mg/dL POC Glucose (mg/dL) (70-110) mg/dL POC Glu Chronograph Operator ID Calcium 10.1 (8.4-10.2) mg/dL Magnesium 1.8 (1.6-2.3) mg/dL Total Bilirubin 0.3 (0.2-1.3) mg/dL AST 28 (14-36) U/L ALT 21 (4-34) U/L Alkaline Phosphatase 85 (38-126) U/L Troponin I <0.012 (0.000-0.034) ng/mL Total Protein 6.8 (6.3-8.2) g/dL Albumin 4.0 (3.5-5.0) g/dL - NIH Stroke Scale 1a. Level of Consciousness: (0) alert 1b. LOC Questions: (0) answers correctly 1c. LOC Commands: (0) performs tasks correctly 2. Best Gaze: (0) normal 3. Visual: (0) no visual loss 4. Facial Palsy: (0) normal symmetrical movement 5a. Motor Arm Left: (0) no drift 5b. Motor Arm Right: (0) no drift 6a. Motor Leg Left: (0) no drift 6b. Motor Leg Right: (0) no drift 7. Limb Ataxia: (0) absent 8. Sensory: (1) mild/moderate sensory loss 9. Best Language: (0) no aphasia 10. Dysarthria: (0) normal 11. Extinction/Inattention: (0) no abnormality - Medical Decision Making Was pt. sent in by a medical professional or institution (, PA, EMISSIONS TESTING TECHNICIAN, urgent care, hospital, or detention...) When possible be specific @ -[No] Did you speak to anyone other than the patient for history (EMS, parent, family, police, friend...)? What history was obtained from this source @ -[No] Did you review nursing and triage notes (agree or disagree)? Why? @ -[I reviewed and agree with nursing and triage notes] Were old charts reviewed (outside hosp., previous admission, EMS record, old EKG, old radiological studies, urgent care reports/EKG's, detention records)? Report findings @ -[No old charts were reviewed] Differential Diagnosis (chest pain, altered mental status, abdominal pain women, abdominal pain men, vaginal bleeding, weakness, fever, dyspnea, syncope, headache, dizziness, GI bleed, back pain, seizure, CVA, palpatations, mental health, musculoskeletal)? @ -Differential Chest Pain: Stable Angina, Unstable Angina, STEMI, NSTEMI Aortic Dissection, Pneumothorax, Musculoskeletal, Esophageal Spasm GERD, Cholecystitis, Pancreatitis, Zoster, this is not meant to be an all-inclusive list. Differential CVA Ischemic stroke, hemorrhagic stroke, brain tumor, atypical migraine, Wernicke's encephalopathy, seizure, multiple sclerosis, meningitis, encephalitis, hypoglycemia, Guillain-Prajapati, electrolytes disturbance, myasthenia gravis.... This is not meant to be an all-inclusive list EKG interpreted by me (3pts min.). @ -Sinus rhythm without ST deviation or T wave inversion. Ventricular rate 60 bpm, DEISY 165 ms, QRS 87 ms, QTc 391 ms. X-rays interpreted by me (1pt min.). @ -[None done] CT interpreted by me (1pt min.). @ -[None done] U/S interpreted by me (1pt. min.). @ -[None done] What testing was considered but not performed or refused? (CT, X-rays, U/S, labs)? Why? @ -[None] What meds were considered but not given or refused? Why? @ -[None] Did you discuss the management of the patient with other professionals (professionals i.e. , PA, EMISSIONS TESTING TECHNICIAN, lab, RT, psych nurse, social services assistant, receiving operator, teacher, civilian jail officer, machine adjuster leader case trim)? Give summary @ -[No] Was smoking cessation discussed for >3mins.? @ -[No] Was critical care preformed (if so, how long)? @ -[No] Were there social determinants of health that impacted care today? How? (Homelessness, low income, unemployed, alcoholism, drug addiction, transportation, low edu. Level, literacy, decrease access to med. care, intermediate, rehab)? @ -[No] Was there de-escalation of care discussed even if they declined (Discuss DNR or withdrawal of care, Hospice)? DNR status @ -[No] What co-morbidities impacted this encounter? (DM, HTN, Smoking, COPD, CAD, Cancer, CVA, ARF, Chemo, Hep., AIDS, mental health diagnosis, sleep apnea, morbid obesity)? @ -[None] Was patient admitted / discharged? Hospital course, mention meds given and route, prescriptions, significant lab abnormalities, going to OR and other pertinent info. @ -[hospital course] Undiagnosed new problem with uncertain prognosis? @ -[No] Drug Therapy requiring intensive monitoring for toxicity (Heparin, Nitro, Insulin, Cardizem)? @ -[No] Were any procedures done? @ -[No] Diagnosis/symptom? @ -[default] Acute, or Chronic, or Acute on Chronic? @ -Acute Uncomplicated (without systemic symptoms) or Complicated (systemic symptoms)? @ -Complicated Side effects of treatment? @ -[No] Exacerbation, Progression, or Severe Exacerbation? @ -[No] Poses a threat to life or bodily function? How? (Chest pain, [place], [place], pneumonia, PE, COPD, DKA, ARF, appy, cholecystitis, CVA, Diverticulitis, Homicidal, Suicidal, threat to staff... and all critical care pts) @ -[No] Past Medical History Past Medical History: GERD/Reflux Additional Past Medical History / Comment(s): IBS History of Any Multi-Drug Resistant Organisms: None Reported Past Surgical History: Bladder Surgery, Hysterectomy, Orthopedic Surgery, Uterine Ablation Additional Past Surgical History / Comment(s): BUNIONECTOMY LT FOOT. BLADDER SLING Past Anesthesia/Blood Transfusion Reactions: Postoperative Nausea & Vomiting (PONV) Past Psychological History: No Psychological Hx Reported Smoking Status: Never smoker Past Alcohol Use History: Occasional Past Drug Use History: None Reported - Past Family History Mother Family Medical History: No Reported History Father Family Medical History: Dementia Course Vital Signs 01/28/25 23:34 Temperature 98.3 F Pulse Rate 69 Respiratory 18 Rate Blood Pressure 164/85 O2 Sat by Pulse 100 Oximetry Disposition Clinical Impression: Lower extremity pain, bilateral, Anxiety Disposition: HOME SELF-CARE Condition: Good Instructions (If sedation given, give patient instructions): Leg Pain (ED) Additional Instructions: Follow-up with PCP for any ongoing or worsening symptoms. Alternate Tylenol /Motrin every 4 hours for pain. Is patient prescribed a controlled substance at d/c from ED?: No Referrals: None,Stated [Primary Care Provider] - 1-2 days Shanna Jacob MD [STAFF PHYSICIAN] - 1-2 days Time of Disposition: 01:37
[2025-01-29 00:22] LABS: Glucose,Whole Blood 99 mg/dL (70-110)
--- NOTE | 2025-01-29 00:41 | CT ---
EXAM: CT Head Without Intravenous Contrast CLINICAL HISTORY: ITS.REASON CT Reason: Left upper/lower extremity paresthesia TECHNIQUE: Axial computed tomography images of the head/brain without intravenous contrast. CTDI is 48.9 mGy and DLP is 1123.8 mGy-cm. This CT exam was performed using one or more of the following dose reduction techniques: automated exposure control, adjustment of the mA and/or kV according to patient size, and/or use of iterative reconstruction technique. COMPARISON: No relevant prior studies available. FINDINGS: Artifacts: Motion artifact limits study. Brain: Unremarkable. No hemorrhage. No significant white matter disease. No edema. Ventricles: No acute findings. No ventriculomegaly. Bones/joints: Unremarkable. No acute fracture. Soft tissues: Unremarkable. Sinuses: Unremarkable as visualized. No acute sinusitis. Mastoid air cells: Unremarkable as visualized. No mastoid effusion. IMPRESSION: No acute findings in the head/brain.
--- NOTE | 2025-01-29 00:47 | CT ---
EXAM: CT Angiography Head With Intravenous Contrast CLINICAL HISTORY: ITS.REASON CT Reason: Left upper/lower extremity paresthesia TECHNIQUE: Axial computed tomographic angiography images of the head with intravenous contrast. CTDI is 15.55 mGy and DLP is 233.6 mGy-cm. This CT exam was performed using one or more of the following dose reduction techniques: automated exposure control, adjustment of the mA and/or kV according to patient size, and/or use of iterative reconstruction technique. MIP reconstructed images were created and reviewed. COMPARISON: No relevant prior studies available. FINDINGS: Right internal carotid artery: No acute findings. Intracranial segment is patent with no significant stenosis. No aneurysm. Right anterior cerebral artery: No occlusion or significant stenosis. No aneurysm. Right middle cerebral artery: No occlusion or significant stenosis. No aneurysm. Right posterior cerebral artery: No occlusion or significant stenosis. No aneurysm. Right vertebral artery: Unremarkable as visualized. Left internal carotid artery: No acute findings. Intracranial segment is patent with no significant stenosis. No aneurysm. Left anterior cerebral artery: No occlusion or significant stenosis. No aneurysm. Left middle cerebral artery: No occlusion or significant stenosis. No aneurysm. Left posterior cerebral artery: No occlusion or significant stenosis. No aneurysm. Left vertebral artery: Unremarkable as visualized. Basilar artery: No occlusion or significant stenosis. No aneurysm. IMPRESSION: Normal head CTA. EXAM: CT Angiography Neck With Intravenous Contrast CLINICAL HISTORY: ITS.REASON CT Reason: Left upper/lower extremity paresthesia TECHNIQUE: Routine carotid CT angiography protocol was performed with intravenous contrast. NASCET criteria using the distal ICAs for comparison were used for evaluation of stenoses. CTDI is 15.55 mGy and DLP is 233.6 mGy-cm. This CT exam was performed using one or more of the following dose reduction techniques: automated exposure control, adjustment of the mA and/or kV according to patient size, and/or use of iterative reconstruction technique. MIP reconstructed images were created and reviewed. COMPARISON: None. FINDINGS: VASCULATURE: Right common carotid artery: No significant stenosis. No dissection or occlusion. Right internal carotid artery: Extracranial segment is patent with no significant stenosis. No dissection or occlusion. Right external carotid artery: No occlusion. Right vertebral artery: No significant stenosis. No dissection or occlusion. Left common carotid artery: No significant stenosis. No dissection or occlusion. Left internal carotid artery: Extracranial segment is patent with no significant stenosis. No dissection or occlusion. Left external carotid artery: No occlusion. Left vertebral artery: No significant stenosis. No dissection or occlusion. NECK: Bones/joints: No acute findings. Soft tissues: Unremarkable. Thyroid: Subcentimeter nodule right lobe of thyroid. Lung apices: No acute disease. CAROTID STENOSIS REFERENCE USING NASCET CRITERIA: % ICA stenosis = (1 - narrowest ICA diameter/diameter of distal cervical ICA) x 100. Mild - <50% stenosis. Moderate - 50-69% stenosis. Severe - 70-94% stenosis. Near occlusion - 95-99% stenosis. Occluded - 100% stenosis. IMPRESSION: No acute findings in the arteries of the neck.
--- NOTE | 2025-01-29 00:58 | XR ---
EXAM: XR Chest, 2 Views CLINICAL HISTORY: ITS.REASON XR Reason: Chest Pain TECHNIQUE: Frontal and lateral views of the chest. COMPARISON: 08/28/2023 FINDINGS: Lungs: Low lung volumes. No consolidation. Pleural space: Unremarkable. No pneumothorax. Heart: No cardiomegaly. Bones/joints: No acute osseous abnormality. IMPRESSION: No acute findings in the chest.
[2025-01-29] MEDS: MORPHINE SULFATE 4 MG/ML SYRINGE IVP STA (01:14)
[2025-01-29 01:17] LABS: ALT 21 U/L (4-34); AST 28 U/L (14-36); African American GFR (CKD) >90 (>60 ml/min/1.73 sqM); Alkaline Phosphatase 85 U/L (38-126); Anion Gap 8 mmol/L; Blood Urea Nitrogen 14 mg/dL (7-17); Calcium 10.1 mg/dL (8.4-10.2); Carbon Dioxide 28 mmol/L (22-30); Chloride 100 mmol/L (98-107); Glucose 98 mg/dL (74-99); Magnesium 1.8 mg/dL (1.6-2.3); Non-African American GFR(CKD) >90 (>60 ml/min/1.73 sqM); Potassium 4.1 mmol/L (3.5-5.1); Sodium 136 mmol/L (137-145); Total Bilirubin 0.3 mg/dL (0.2-1.3); Total Protein 6.8 g/dL (6.3-8.2)
[2025-01-29] MEDS: ACETAMINOPHEN TAB 500 MG TAB PO STA (01:17)
[2025-01-29 01:19] LABS: INR 0.9 (<1.2); Prothrombin Time 10.4 sec (10.0-12.5)
[2025-01-29 01:26] LABS: Basophils # (A) 0.04 10*3/uL (0.00-0.10); Basophils % (A) 0.5 %; Eosinophils # (A) 0.63 10*3/uL (0.04-0.35); Eosinophils % (A) 8.1 %; HCT 37.5 % (37.2-46.3); HGB 12.9 g/dL (12.0-15.0); Lymphocytes # (A) 3.91 10*3/uL (0.90-5.00); Lymphocytes % (A) 50.1 %; MCH 31.9 pg (27.0-32.0); MCHC 34.4 g/dL (32.0-37.0); MCV 92.8 fL (80.0-97.0); Mean Platelet Volume 9.4 fL (9.5-12.2); Monocytes # (A) 0.53 10*3/uL (0.20-1.00); Monocytes % (A) 6.8 %; Neutrophils # (A) 2.69 10*3/uL (1.80-7.70); Neutrophils % (A) 34.4 %; Platelet Count 329 10*3/uL (140-440); RBC 4.04 10*6/uL (4.10-5.20); RDW 12.2 % (11.5-14.5); WBC 7.81 10*3/uL (4.50-10.00)
[2025-01-29 01:33] LABS: Partial Thromboplastin Time 20.7 sec (22.0-30.0)
[2025-01-29 02:20] VITALS: BP 131/92; PULSE 74; RESP 16
== END 2025-01-29 02:20 | disposition home or self-care (01) ==
LOC: EC 23:33
DX: M79.605 Pain in left leg (principal); M79.604 Pain in right leg; F41.9 Anxiety disorder, unspecified
CPT/HCPCS: 36415; 93005; 80053; 83735; 84484; 85025; 85610; 85730; 71046; 70496; 70450; 70498; 99284; Q9967

== ENCOUNTER 2025-02-14 21:35 | Emergency (ER) | payer BC ==
--- NOTE | 2025-02-14 21:58 | ED ---
General Adult HPI - General Source: patient, RN notes reviewed Mode of arrival: ambulatory Limitations: no limitations <Magda Sanchez - Last Filed: 02/14/25 21:58> - General Source: patient, RN notes reviewed Mode of arrival: ambulatory Limitations: no limitations - History of Present Illness -: days(s) Radiation: non-radiation Severity scale (1-10): 7 Quality: sharp Consistency: intermittent Improves with: none Worsens with: none Associated Symptoms: confusion, loss of appetite, nausea/vomiting, shortness of breath, weakness Treatments Prior to Arrival: none <Mayank Thao - Last Filed: 02/15/25 18:37> - General Chief complaint: Abdominal Pain Stated complaint: Abd pain / nausea / left arm numbness Time Seen by Provider: 02/14/25 21:50 - History of Present Illness Initial comments: Quick [id number] female presents to the emergency department with multiple complaints. Patient states that she has been experiencing left-sided abdominal pain with associated nausea and diarrhea over the past week. She also states that she has been having chest pain, racing heart, left-sided arm numbness and tingling. Denies cardiac history. She states that her abdomen feels similar to when she had colitis a year ago. (Magda Sanchez) This is a 54-year-old female palpitations chest pain abdominal pain nausea vomiting diarrhea chest pain back pain as well as left arm sided numbness and tingling. Patient's symptoms are significantly worsening over the course of the week (Mayank Thao) - Related Data Home Medications Medication Instructions Recorded Confirmed Dextroamphetamine/Amphetamine 20 mg PO DAILY 07/24/22 08/25/23 [Adderall] Estrogens, Conjugated [Premarin] 0.3 mg PO HS 07/24/22 08/25/23 Ascorbic Acid [Vitamin C] 1,000 mg PO DAILY PRN 08/25/23 08/25/23 Aspirin/Acetaminophen/Caffeine 2 tab PO Q6H PRN 08/25/23 08/25/23 [Excedrin Migraine Caplet] LORazepam [Ativan] 1 mg PO DAILY PRN 08/25/23 08/25/23 Previous Rx's Medication Instructions Recorded Dicyclomine [Bentyl] 20 mg PO QID PRN #15 tablet 08/25/23 Ondansetron Odt [Zofran Odt] 4 mg PO Q8HR PRN #10 tab 08/25/23 Acetaminophen Tab [Tylenol] 650 mg PO Q4HR PRN tab 08/29/23 Amoxic-Pot Clav 875-125Mg 1 tab PO Q12HR 3 Days #6 tab 08/29/23 [Augmentin 875-125] Pantoprazole [Protonix] 40 mg PO BID 30 Days #60 tab 08/29/23 Allergies Allergy/AdvReac Type Severity Reaction Status Date / Time No Known Allergies Allergy Verified 02/14/25 21:45 Review of Systems ROS Other: All systems not noted in ROS Statement are negative. <Magda Sanchez - Last Filed: 02/14/25 21:58> ROS Other: All systems not noted in ROS Statement are negative. <Mayank Thao - Last Filed: 02/15/25 18:37> ROS Statement: Those systems with pertinent positive or pertinent negative responses have been documented in the HPI. Past Medical History Past Medical History: GERD/Reflux Additional Past Medical History / Comment(s): IBS History of Any Multi-Drug Resistant Organisms: None Reported Past Surgical History: Bladder Surgery, Hysterectomy, Orthopedic Surgery, Uterine Ablation Additional Past Surgical History / Comment(s): BUNIONECTOMY LT FOOT. BLADDER SLING Past Anesthesia/Blood Transfusion Reactions: Postoperative Nausea & Vomiting (PONV) Past Psychological History: No Psychological Hx Reported Smoking Status: Never smoker Past Alcohol Use History: Occasional Past Drug Use History: None Reported - Past Family History Mother Family Medical History: No Reported History Father Family Medical History: Dementia <Magda Sanchez - Last Filed: 02/14/25 21:58> General Exam Limitations: no limitations <Magda Sanchez - Last Filed: 02/14/25 21:58> General appearance: alert, in no apparent distress Head exam: Present: atraumatic, normocephalic, normal inspection Eye exam: Present: normal appearance, PERRL, EOMI. Absent: scleral icterus, conjunctival injection, periorbital swelling ENT exam: Present: normal exam, mucous membranes moist Neck exam: Present: normal inspection. Absent: tenderness, meningismus, lymphadenopathy Respiratory exam: Present: normal lung sounds bilaterally. Absent: respiratory distress, wheezes, rales, rhonchi, stridor Cardiovascular Exam: Present: regular rate, normal rhythm, normal heart sounds. Absent: systolic murmur, diastolic murmur, rubs, gallop, clicks GI/Abdominal exam: Present: soft, normal bowel sounds. Absent: distended, tenderness, guarding, rebound, rigid Extremities exam: Present: normal inspection, full ROM, normal capillary refill. Absent: tenderness, pedal edema, joint swelling, calf tenderness Back exam: Present: normal inspection Neurological exam: Present: alert, oriented X3, CN II-XII intact Psychiatric exam: Present: normal affect, normal mood Skin exam: Present: warm, dry, intact, normal color. Absent: rash <Mayank Thao - Last Filed: 02/15/25 18:37> - General Exam Comments Initial Comments: Visual Physical Exam Vital signs reviewed General: Well-appearing, nontoxic, no acute distress. Head: Normocephalic, atraumatic Eyes: PERRLA, EOMI ENT: Airway patent Chest: Nonlabored breathing Skin: No visual rash, normal skin tone Neuro: Alert and oriented 3 Musculoskeletal: No gross abnormalities (Stieler,Magda) Course <Mayank Thao - Last Filed: 02/15/25 18:37> Vital Signs 02/14/25 02/15/25 02/15/25 21:42 00:00 01:40 Temperature 97.7 F 98.0 F Pulse Rate 78 76 54 L Respiratory 16 20 18 Rate Blood Pressure 160/107 158/67 137/91 O2 Sat by Pulse 100 97 100 Oximetry - Reevaluation(s) Reevaluation #1: Medical records reviewed (Mayank Thao) Reevaluation #2: Patient's symptoms improved (Mayank Thao) Reevaluation #3: Patient informed of results questions answered (Mayank Thao) Reevaluation #4: Was pt. sent in by a medical professional or institution (, PA, PROTEIN SCIENTIST, urgent care, hospital, or jail...) When possible be specific @ -no Did you speak to anyone other than the patient for history (EMS, parent, family, police, friend...)? What history was obtained from this source @ -no Did you review nursing and triage notes (agree or disagree)? Why? @ -agree Are old charts reviewed (outside hosp., previous admission, EMS record, old EKG, old radiological studies, urgent care reports/EKG's, jail records)? Report findings @ -yes Differential Diagnosis (chest pain, altered mental status, abdominal pain women, abdominal pain men, vaginal bleeding, weakness, fever, dyspnea, syncope, headache, dizziness, GI bleed, back pain, seizure, CVA, palpatations, mental health, musculoskeletal)? @ -prior EKG interpreted by me (3pts min.). @ -yes X-rays interpreted by me (1pt min.). @ -no CT interpreted by me (1pt min.). @ -yes negative for acute disease U/S interpreted by me (1pt. min.). @ -no What testing was considered but not performed or refused? (CT, X-rays, U/S, labs)? Why? @ -none What meds were considered but not given or refused? Why? @ -none Did you discuss the management of the patient with other professionals (professionals i.e. , PA, PROTEIN SCIENTIST, lab, RT, psych nurse, social sciences instructor, banana grader, teacher, seaman officer, case picker)? Give summary @ -no Was smoking cessation discussed for >3mins.? @ -no Was critical care preformed (if so, how long)? @ -no Were there social determinants of health that impacted care today? How? (Homelessness, low income, unemployed, alcoholism, drug addiction, transportation, low edu. Level, literacy, decrease access to med. care, correction, rehab)? @ -none Was there de-escalation of care discussed even if they declined (Discuss DNR or withdrawal of care, Hospice)? DNR status @ -no What co-morbidities impacted this encounter? (DM, HTN, Smoking, COPD, CAD, Cancer, CVA, ARF, Chemo, Hep., AIDS, mental health diagnosis, sleep apnea, morbid obesity)? @ -none Was patient admitted / discharged? Hospital course, mention meds given and route, prescriptions, significant lab abnormalities, going to OR and other pertinent info. @ -54 female to the ER for evaluation [facility] multiple complaints vomiting chest pain abdominal pain nausea vomiting paresthesias numbness tingling arms and legs. Patient has no acute findings here in the ER symptoms are improving throughout ER stay with nothing significant, patient feels better and can be discharged home Discharge Undiagnosed new problem with uncertain prognosis? @ -no Drug Therapy requiring intensive monitoring for toxicity (Heparin, Nitro, Insulin, Cardizem)? @ -no Were any procedures done? @ -no Diagnosis/symptom? @ -Chest pain abdominal pain paresthesia Acute, or Chronic, or Acute on Chronic? @ -Acute Uncomplicated (without systemic symptoms) or Complicated (systemic symptoms)? @ -Complicated Side effects of treatment? @ -no Exacerbation, Progression, or Severe Exacerbation? @ -exacerbation Poses a threat to life or bodily function? How? (Chest pain, USA, SD, pneumonia, PE, COPD, DKA, ARF, appy, cholecystitis, CVA, Diverticulitis, Homicidal, Suicidal, threat to staff... and all critical care pts) @ -yes with chest pain (Mayank Thao) EKG Findings - EKG Comments: EKG Findings:: EKG is sinus 63 UT 172 QRS 89 QTc 409 - EKG Results: EKG: interpreted by ERMD <Mayank Thao - Last Filed: 02/15/25 18:37> Medical Decision Making <Magda Sanchez - Last Filed: 02/14/25 21:58> - Lab Data Result diagrams: 02/14/25 22:07 02/14/25 22:07 - EKG Data -: EKG Interpreted by Me - Radiology Data Radiology results: report reviewed (CTA chest CT on pelvis negative for acute d isease), image reviewed <Mayank Thao - Last Filed: 02/15/25 18:37> - Medical Decision Making I completed the quick note portion of this chart signed Magda Sanchez PA-C (Magda Sanchez) 54 [facility] vomiting chest pain abdominal pain nausea vomiting paresthesias numbness tingling arms and legs. Patient has no acute findings here in the ER symptoms are improving throughout ER stay with nothing significant, patient feels better and can be discharged home (Mayank Thao) - Lab Data Lab Results 02/14/25 02/14/25 02/14/25 Range/Units 22:07 22:07 22:07 WBC 11.36 H (4.50-10.00) 10*3/uL RBC 4.57 (4.10-5.20) 10*6/uL Hgb 14.4 (12.0-15.0) g/dL Hct 41.8 (37.2-46.3) % MCV 91.5 (80.0-97.0) fL MCH 31.5 (27.0-32.0) pg MCHC 34.4 (32.0-37.0) g/dL Plt Count 417 (140-440) 10*3/uL MPV 9.2 L (9.5-12.2) fL Immature Gran % (Auto) 0.3 % Neutrophils % 57.3 % Lymphocytes % 31.4 % Monocytes % 8.2 % Eosinophils % 2.4 % Basophils % 0.4 % Immature Gran # 0.03 (0.00-0.04) 10*3/uL Neutrophils # 6.51 (1.80-7.70) 10*3/uL Lymphocytes # 3.57 (0.90-5.00) 10*3/uL Monocytes # 0.93 (0.20-1.00) 10*3/uL Eosinophils # 0.27 (0.04-0.35) 10*3/uL Basophils # 0.05 (0.00-0.10) 10*3/uL Sodium 141 (137-145) mmol/L Potassium 3.6 (3.5-5.1) mmol/L Chloride 104 (98-107) mmol/L Carbon Dioxide 28 (22-30) mmol/L Anion Gap 9 mmol/L BUN 14 (7-17) mg/dL Creatinine 0.67 (0.52-1.04) mg/dL Est GFR (CKD-EPI)AfAm >90 (>60 ml/min/1.73 sqM) Est GFR (CKD-EPI)NonAf >90 (>60 ml/min/1.73 sqM) Glucose 102 H (74-99) mg/dL Plasma Lactic Acid Abdifatah 0.8 (0.7-2.0) mmol/L Calcium 10.0 (8.4-10.2) mg/dL Total Bilirubin 0.4 (0.2-1.3) mg/dL AST 36 (14-36) U/L ALT 20 (4-34) U/L Alkaline Phosphatase 102 (38-126) U/L Troponin I (0.000-0.034) ng/mL Total Protein 7.4 (6.3-8.2) g/dL Albumin 4.3 (3.5-5.0) g/dL Amylase 48 (30-110) U/L Lipase 83 (23-300) U/L Urine Color Urine Appearance (Clear) Urine pH (5.0-8.0) Ur Specific [place] (1.001-1.035) Urine Protein (Negative) Urine Glucose (UA) (Negative) Urine Ketones (Negative) Urine Blood (Negative) Urine Nitrite (Negative) Urine Bilirubin (Negative) Urine Urobilinogen (<2.0) mg/dL Ur Leukocyte Esterase (Negative) Urine WBC (0-5) /hpf Ur Squamous Epith Cells (0-4) /hpf Urine Mucus (None) /hpf 02/14/25 02/14/25 Range/Units 22:07 23:20 WBC (4.50-10.00) 10*3/uL RBC (4.10-5.20) 10*6/uL Hgb (12.0-15.0) g/dL Hct (37.2-46.3) % MCV (80.0-97.0) fL MCH (27.0-32.0) pg MCHC (32.0-37.0) g/dL Plt Count (140-440) 10*3/uL MPV (9.5-12.2) fL Immature Gran % (Auto) % Neutrophils % % Lymphocytes % % Monocytes % % Eosinophils % % Basophils % % Immature Gran # (0.00-0.04) 10*3/uL Neutrophils # (1.80-7.70) 10*3/uL Lymphocytes # (0.90-5.00) 10*3/uL Monocytes # (0.20-1.00) 10*3/uL Eosinophils # (0.04-0.35) 10*3/uL Basophils # (0.00-0.10) 10*3/uL Sodium (137-145) mmol/L Potassium (3.5-5.1) mmol/L Chloride (98-107) mmol/L Carbon Dioxide (22-30) mmol/L Anion Gap mmol/L BUN (7-17) mg/dL Creatinine (0.52-1.04) mg/dL Est GFR (CKD-EPI)AfAm (>60 ml/min/1.73 sqM) Est GFR (CKD-EPI)NonAf (>60 ml/min/1.73 sqM) Glucose (74-99) mg/dL Plasma Lactic Acid Abdifatah (0.7-2.0) mmol/L Calcium (8.4-10.2) mg/dL Total Bilirubin (0.2-1.3) mg/dL AST (14-36) U/L ALT (4-34) U/L Alkaline Phosphatase (38-126) U/L Troponin I <0.012 (0.000-0.034) ng/mL Total Protein (6.3-8.2) g/dL Albumin (3.5-5.0) g/dL Amylase (30-110) U/L Lipase (23-300) U/L Urine Color Light Yellow Urine Appearance Clear (Clear) Urine pH 6.0 (5.0-8.0) Ur Specific [place] 1.015 (1.001-1.035) Urine Protein Negative (Negative) Urine Glucose (UA) Negative (Negative) Urine Ketones Negative (Negative) Urine Blood Negative (Negative) Urine Nitrite Negative (Negative) Urine Bilirubin Negative (Negative) Urine Urobilinogen <2.0 (<2.0) mg/dL Ur Leukocyte Esterase Trace H (Negative) Urine WBC 3 (0-5) /hpf Ur Squamous Epith Cells 1 (0-4) /hpf Urine Mucus Rare H (None) /hpf Disposition <Magda Sanchez - Last Filed: 02/14/25 21:58> Is patient prescribed a controlled substance at d/c from ED?: No Time of Disposition: 00:50 <Mayank Thoa - Last Filed: 02/15/25 18:37> Clinical Impression: Abdominal pain, Nausea and vomiting, Abdominal colic, Gastritis, Paresthesia Disposition: HOME SELF-CARE Condition: Good Instructions (If sedation given, give patient instructions): Paresthesia (ED), Abdominal Pain (ED) Referrals: None,Stated [Primary Care Provider] - 1-2 days
[2025-02-14 22:17] LABS: Basophils # (A) 0.05 10*3/uL (0.00-0.10); Basophils % (A) 0.4 %; Eosinophils # (A) 0.27 10*3/uL (0.04-0.35); Eosinophils % (A) 2.4 %; HCT 41.8 % (37.2-46.3); HGB 14.4 g/dL (12.0-15.0); Lymphocytes # (A) 3.57 10*3/uL (0.90-5.00); Lymphocytes % (A) 31.4 %; MCH 31.5 pg (27.0-32.0); MCHC 34.4 g/dL (32.0-37.0); MCV 91.5 fL (80.0-97.0); Mean Platelet Volume 9.2 fL (9.5-12.2); Monocytes # (A) 0.93 10*3/uL (0.20-1.00); Monocytes % (A) 8.2 %; Neutrophils # (A) 6.51 10*3/uL (1.80-7.70); Neutrophils % (A) 57.3 %; Platelet Count 417 10*3/uL (140-440); RBC 4.57 10*6/uL (4.10-5.20); RDW 11.9 % (11.5-14.5); WBC 11.36 10*3/uL (4.50-10.00)
[2025-02-14 22:32] LABS: ALT 20 U/L (4-34); AST 36 U/L (14-36); African American GFR (CKD) >90 (>60 ml/min/1.73 sqM); Albumin 4.3 g/dL (3.5-5.0); Alkaline Phosphatase 102 U/L (38-126); Amylase 48 U/L (30-110); Anion Gap 9 mmol/L; Blood Urea Nitrogen 14 mg/dL (7-17); Carbon Dioxide 28 mmol/L (22-30); Chloride 104 mmol/L (98-107); Glucose 102 mg/dL (74-99); Lipase 83 U/L (23-300); Non-African American GFR(CKD) >90 (>60 ml/min/1.73 sqM); Potassium 3.6 mmol/L (3.5-5.1); Sodium 141 mmol/L (137-145); Total Bilirubin 0.4 mg/dL (0.2-1.3); Total Protein 7.4 g/dL (6.3-8.2)
[2025-02-14] MEDS: SODIUM CHLORIDE 0.9% 1,000 ML IV ONE (23:25)
[2025-02-14] MEDS: ONDANSETRON 4 MG/2 ML VIAL IVP STA (23:25)
[2025-02-14] MEDS: HYDROmorphone 0.5 MG/0.5 ML SYRINGE IVP STA (23:28)
[2025-02-14] MEDS: PANTOPRAZOLE 40 MG/10 ML VIAL IVP STA (23:30)
[2025-02-15 00:16] VITALS: TEMP 98
--- NOTE | 2025-02-15 00:43 | CT ---
EXAM: CT Angiography Chest With Intravenous Contrast CLINICAL HISTORY: ITS.REASON CT Reason: pain TECHNIQUE: Axial computed tomographic angiography images of the chest with intravenous contrast. CTDI is 6.7 mGy and DLP is 251.8 mGy-cm. This CT exam was performed using one or more of the following dose reduction techniques: automated exposure control, adjustment of the mA and/or kV according to patient size, and/or use of iterative reconstruction technique. MIP reconstructed images were created and reviewed. COMPARISON: No relevant prior studies available. FINDINGS: Pulmonary arteries: Unremarkable. No pulmonary embolism. Aorta: No acute findings. No thoracic aortic aneurysm. Lungs: Unremarkable. No mass. No consolidation. Pleural space: Unremarkable. No significant effusion. No pneumothorax. Heart: Unremarkable. No cardiomegaly. No significant pericardial effusion. No evidence of RV dysfunction. Bones/joints: No acute fracture. No dislocation. Soft tissues: Bilateral breast implants. Lymph nodes: Unremarkable. No enlarged lymph nodes. IMPRESSION: No pulmonary embolism.
[2025-02-15 00:51] LABS: Appearance,Urine Clear (Clear); Bilirubin,Urine Negative (Negative); Blood,Urine Negative (Negative); Color,Urine Light Yellow; Glucose,Urine (UA) Negative (Negative); Ketones,Urine Negative (Negative); Leukocyte Esterase,Urine Trace (Negative); Mucus,Urine Rare /hpf; Nitrite,Urine Negative (Negative); Protein,Urine Negative (Negative); Specific Gravity,Urine 1.015 (1.001-1.035); Squamous Epithelial Cell,Urine 1 /hpf (0-4); Urobilinogen,Urine <2.0 mg/dL (<2.0); WBC,Urine 3 /hpf (0-5)
--- NOTE | 2025-02-15 01:15 | CT ---
EXAM: CT Abdomen and Pelvis With Intravenous Contrast CLINICAL HISTORY: ITS.REASON CT Reason: pain TECHNIQUE: Axial computed tomography images of the abdomen and pelvis with intravenous contrast. CTDI is 7.9 mGy and DLP is 458.1 mGy-cm. This CT exam was performed using one or more of the following dose reduction techniques: automated exposure control, adjustment of the mA and/or kV according to patient size, and/or use of iterative reconstruction technique. COMPARISON: No relevant prior studies available. FINDINGS: Lung bases: Unremarkable. No mass. No consolidation. ABDOMEN: Liver: Hepatic low-attenuation cystic lesions. No mass. Gallbladder and bile ducts: Unremarkable. No calcified stones. No ductal dilation. Pancreas: Unremarkable. No mass. No ductal dilation. Spleen: Unremarkable. No splenomegaly. Adrenals: Unremarkable. No mass. Kidneys and ureters: Unremarkable. No solid mass. No hydronephrosis. Stomach and bowel: Unremarkable. No obstruction. No mucosal thickening. PELVIS: Appendix: No findings to suggest acute appendicitis. Bladder: Unremarkable. No mass. Reproductive: Unremarkable as visualized. ABDOMEN and PELVIS: Intraperitoneal space: Unremarkable. No free air. No significant fluid collection. Bones/joints: No acute fracture. No dislocation. Soft tissues: Bilateral breast implants. Vasculature: Unremarkable. No abdominal aortic aneurysm. Lymph nodes: Unremarkable. No enlarged lymph nodes. IMPRESSION: No acute findings.
[2025-02-15 01:45] VITALS: BP 137/91; PULSE 54; RESP 18
== END 2025-02-15 01:45 | disposition home or self-care (01) ==
LOC: EC 21:35
DX: K29.70 Gastritis, unspecified, without bleeding (principal); R10.83 Colic; R20.2 Paresthesia of skin
CPT/HCPCS: 36415; 93005; 80053; 82150; 83605; 83690; 84484; 85025; 81001; 71275; 74177; 99285; 96374; 96375 ×2; 96361 ×2; J2405; J1171; Q9967; J2470